=== PATIENT | male | born 1940 | race Caucasian/White ===

== ENCOUNTER → 2018-07-19 | Outpatient (CLI) | payer OTHER ==
[~2018-07-19] MED LIST: AMLO10TA7 PO; CARV12.511 PO; HYDR12.530 PO; LOSA100T58 PO; PRAV10TA39 PO
== END | disposition home or self-care (01) ==
LOC: RAH 08:28
PROVIDERS: ATTEND Neuromusculoskeletal Medicine & OMM
DX: M16.0 Bilateral primary osteoarthritis of hip (principal); I70.8 Atherosclerosis of other arteries; M47.816 Spondylosis without myelopathy or radiculopathy, lumbar region; M53.3 Sacrococcygeal disorders, not elsewhere classified; T84.216A Breakdown (mechanical) of internal fixation device of vertebrae, initial encounter; R29.6 Repeated falls
CPT/HCPCS: 72100; 73521

== ENCOUNTER → 2018-09-26 | Outpatient (CLI) | payer OTHER | END | disposition home or self-care (01) | LOC: SHCH 11:28 | PROVIDERS: ATTEND Internal Medicine Cardiovascular Disease | DX: I70.291 Other atherosclerosis of native arteries of extremities, right leg (principal) | CPT/HCPCS: 93925 ==

== ENCOUNTER → 2018-10-14 | Outpatient (CLI) | payer OTHER | END | disposition home or self-care (01) | LOC: SHCH 14:48 | PROVIDERS: ATTEND Internal Medicine Cardiovascular Disease | DX: I08.3 Combined rheumatic disorders of mitral, aortic and tricuspid valves (principal); I11.9 Hypertensive heart disease without heart failure | CPT/HCPCS: 93306 ==

== ENCOUNTER → 2018-10-17 | Outpatient (CLI) | payer OTHER ==
[~2018-10-17] VITALS: Ht 182.9 cm; Wt 112.0 kg
[~2018-10-17] MED LIST changes: +REGADENOSON 0.4 MG/5 ML PF SYG IVP SCH
== END | disposition home or self-care (01) ==
LOC: SHCH 07:48
PROVIDERS: ATTEND Internal Medicine Cardiovascular Disease
DX: I10 Essential (primary) hypertension (principal); I25.10 Atherosclerotic heart disease of native coronary artery without angina pectoris
CPT/HCPCS: 78452; 93017; 96374; A9500 ×2; J2785

== ENCOUNTER 2018-11-23 12:54 | Inpatient (IN) | payer OTHER ==
[~2018-11-23] VITALS: Ht 177.8 cm; Wt 111.7 kg
[~2018-11-23 12:54] MED LIST changes: -REGADENOSON 0.4 MG/5 ML PF SYG IVP SCH
[2018-11-23 13:42] LABS: APPEARANCE,URINE Clear (CLEAR); BILIRUBIN,URINE Negative (NEGATIVE); COLOR,URINE Yellow (YELLOW); GLUCOSE, URINE (UA) Negative (NEGATIVE); KETONES,URINE Trace mg/dL (NEGATIVE); LEUKOCYTE ESTERASE ,URINE Negative (NEGATIVE); NITRATE,URINE Negative (NEGATIVE); OCCULT BLOOD,URINE Trace (NEGATIVE); PH,URINE 5.5 (5.0-8.0); PROTEIN,URINE Trace mg/dL (NEGATIVE)
[2018-11-23 14:10] LABS: BACTERIA,URINE Rare /HPF (None Seen); SQUAMOUS EPITHELIAL CELL,UR Rare /HPF (0-2); WBC,URINE None Seen /HPF (0-1)
[2018-11-23] MEDS ORDERED: SODIUM CHLORIDE 0.9% 1000ML 1,000 ML IV ONE (14:12)
[2018-11-23 14:17] LABS: BASOPHILS % (AUTO) 0.4 % (0.0-5.0); HEMATOCRIT 44.9 % (42-54); LYMPHOCYTES % (AUTO) 6.3 % (21.0-51.0); MEAN CORPUSCULAR HEMOGLOBIN 32.6 pg (27.0-33.0); MEAN CORPUSCULAR VOLUME 95.9 fL (79-99); MONOCYTES % (AUTO) 6.6 % (3.0-13.0); NEUTROPHILS % (AUTO) 86.7 % (40.0-77.0); PLATELET COUNT (AUTO) 315 K/uL (130-400); RED BLOOD CELL COUNT(AUTO) 4.68 MIL/uL (4.50-6.20); RED CELL DISTRIBUTION WIDTH 13.7 % (11.0-15.5); WHITE BLOOD COUNT (AUTO) 15.9 K/uL (4.8-10.8)
[2018-11-23 14:27] LABS: INR 1.07 (0.85-1.15); PARTIAL THROMBOPLASTIN TIME 22.9 SEC (26.3-35.5); PROTHROMBIN TIME 11.2 SEC (9.6-11.6)
[2018-11-23 14:30] LABS: CREATININE 1.4 mg/dL (0.5-1.5); POTASSIUM 3.5 mmol/L (3.5-5.1)
[2018-11-23 14:42] LABS: ALBUMIN 3.2 g/dL (3.5-5.0); BILIRUBIN,TOTAL 1.3 mg/dL (0.2-1.0); TOTAL PROTEIN, SERUM 7.8 g/dL (6.0-8.3); TROPONIN I 0.36 ng/mL (0.00-0.06)
[2018-11-23] MEDS ORDERED: ZOSYN 3.375GM+NS 50ML 50 ML IV ONE (15:47)
[2018-11-23] MEDS ORDERED: ASPIRIN 325 MG TABLET ONE (15:47)
[2018-11-23] MEDS ORDERED: ACETAMINOPHEN-CODEINE 300/30MG TAB PO PRN (16:00)
[2018-11-23] MEDS ORDERED: DiphenhydrAMINE HCL 50 MG/ML VIAL IV PRN (16:00)
[2018-11-23] MEDS ORDERED: LIDOCAINE HCL-MPF 1% 2ML VIAL IV PRN (16:00)
[2018-11-23] MEDS ORDERED: MAG HYDROX/AL HYDROX/SIMETH ES 30 ML SUSP UDCUP PO PRN (16:00)
[2018-11-23] MEDS ORDERED: HYDROMORPHONE HCL 0.5 MG/0.5 ML ML IV PRN (16:00)
[2018-11-23] MEDS ORDERED: GUAIFENESIN-DM 200/20 MG 10 ML PO PRN (16:00)
[2018-11-23] MEDS ORDERED: DIPHENHYDRAMINE HCL 25 MG CAPSULE PO PRN (16:00)
[2018-11-23] MEDS ORDERED: NITROGLYCERIN 0.4 MG SL TAB SL PRN (16:00)
[2018-11-23] MEDS ORDERED: VANCOMYCIN 1GM+NS 250ML 250 ML IV SCH (16:00)
[2018-11-23] MEDS ORDERED: MAGNESIUM 2GM PREMIX 50ML 50 ML IV PRN (16:00)
[2018-11-23] MEDS ORDERED: ONDANSETRON HCL 4 MG/2 ML VIAL IV PRN (16:00)
[2018-11-23] MEDS ORDERED: LACTULOSE 20 GM/30 ML UDCUP PO PRN (16:00)
[2018-11-23] MEDS ORDERED: ZOLPIDEM TARTRATE 5 MG TAB PO PRN (16:00)
[2018-11-23] MEDS ORDERED: ACETAMINOPHEN 325 MG TAB PO PRN (16:00)
[2018-11-23] MEDS ORDERED: HYDRALAZINE HCL 20 MG/ML VIAL IV PRN (16:00)
[2018-11-23] MEDS ORDERED: VANCOMYCIN 1GM+NS 250ML 250 ML IV ONE (16:41)
[2018-11-23 16:52] LABS: MONOTEST NEGATIVE (NEGATIVE)
[2018-11-23 16:55] LABS: B-TYPE NATRIURETIC PEPTIDE 892 pg/mL (0-100)
[2018-11-23 17:00] LABS: RAPID PLASMA REAGIN NONREACTIVE (NONREACTIVE)
[2018-11-23] MEDS ORDERED: VANCOMYCIN PROTOCOL PER PHARMACY IV SCH (17:00)
[2018-11-23] MEDS ORDERED: COMPOUND IV REFRIGERATED 1 EACH IVSOLN MISC PRN (17:15)
[2018-11-23 17:34] LABS: ERYTHROCYTE SEDIMENTATION RATE 62 MM/HR (0-20)
--- NOTE | 2018-11-23 18:00 | NUR ---
ADMISSION PT RECEIVED FROM ER VIA STRETCHER. TRANSFERRED FROM STRETCHER TO HOSPITAL BED BY STAFF. TOLERATED WELL. PT DISORIENTED. PT ABLE TO RECALL 1st NAME, JIM ONLY. PT PLACED ON O2 NC @ 2L. NO CHEST TELE: A FIB 90-100s. VANCOMYCIN INFUSING. 0.9% NACL @ 100 ML/HR. 16 FR RAMÍREZ CATHETER PATENT & DRAINING. HX OF CHRONIC BACK PAIN & RECENT PROCEDURE TO BACK PER ER REPORT. DENIES PAIN @ THIS TIME. NPO STATUS REINFORCED. BEDREST. BED FALL ALARM. UNABLE TO OBTAIN HX FROM PT. PER ER REPORT, PLAN FOR PT TO HAVE LHC ON 11/26/[address] OCONNOR. PENDING TO RECONCILE HOME MEDICATIONS. INSTRUCTED TO CALL FOR ASSISTANCE. CALL ISAIAH W/IN REACH.
[2018-11-23 18:11] VITALS: BP 162/103
[2018-11-23] MEDS: SODIUM CHLORIDE 0.9% 1000ML 1,000 ML IV SCH (18:14)
[2018-11-23 18:18] VITALS: BP 141/68
[2018-11-23] MEDS ORDERED: CEPH500C2 PO (18:54)
[2018-11-23] MEDS ORDERED: ACET1TAB25 PO (18:54)
[2018-11-23 19:44] LABS: CRP QUANTITATIVE 115.6 mg/L (0.00-9.0); TROPONIN I 0.45 ng/mL (0.00-0.06)
[2018-11-23 19:52] VITALS: BP 136/96
[2018-11-23] MEDS ORDERED: PRAV40TA3 PO (20:35)
[2018-11-23] MEDS ORDERED: ASPI-555 PO (20:35)
[2018-11-23] MEDS ORDERED: TAMS-1 PO (20:35)
[2018-11-23] MEDS: ZOSYN 3.375GM+NS 50ML 50 ML IV SCH (21:13)
[2018-11-23] MEDS: FAMOTIDINE 20MG TAB 20 MG TAB PO SCH (21:13)
[2018-11-23] MEDS: MORPHINE SULFATE 2 MG/ML 1ML SYG IV PRN (21:14)
[2018-11-24] VITALS (26 sets, daily range): BP systolic 105–157; BP diastolic 73–109
[2018-11-24 01:06] LABS: TROPONIN I 0.38 ng/mL (0.00-0.06)
[2018-11-24] MEDS: MORPHINE SULFATE 2 MG/ML 1ML SYG IV PRN ×2 (01:41→20:09)
[2018-11-24 04:50] LABS: HEMATOCRIT 42.6 % (42-54); MEAN CORPUSCULAR HEMOGLOBIN 32.4 pg (27.0-33.0); MEAN CORPUSCULAR HGB CONC 33.3 g/dL (32.0-36.0); MEAN CORPUSCULAR VOLUME 97.4 fL (79-99); NUCLEATED RED BLOOD CELLS 0.1 % (0.0-0.19); PLATELET COUNT (AUTO) 296 K/uL (130-400); RED BLOOD CELL COUNT(AUTO) 4.38 MIL/uL (4.50-6.20); RED CELL DISTRIBUTION WIDTH 13.6 % (11.0-15.5); WHITE BLOOD COUNT (AUTO) 15.9 K/uL (4.8-10.8)
[2018-11-24 04:58] LABS: CREATININE 1.1 mg/dL (0.5-1.5); MAGNESIUM 1.8 mg/dL (1.80-2.40); POTASSIUM 3.1 mmol/L (3.5-5.1)
[2018-11-24 05:06] LABS: B-TYPE NATRIURETIC PEPTIDE 1510 pg/mL (0-100)
[2018-11-24 05:11] LABS: BAND NEUTROPHILS % (MANUAL) 1 % (0-2); BASOPHILS % (MANUAL) 2 % (0-2); LYMPHOCYTES % (MANUAL) 12 % (22-44); MAN.DIFF COMMENT-IMPRESSION MANUAL DIFFERENTIAL; MONOCYTES % (MANUAL) 7 % (2-9); SEGMENTED NEUTROPHILS % 78 % (40-70)
[2018-11-24] MEDS: POTASSIUM CHLORIDE 20MEQ/100ML 100 ML IV PRN ×2 (05:49→17:39)
[2018-11-24] MEDS: ZOSYN 3.375GM+NS 50ML 50 ML IV SCH ×3 (05:49→21:35)
[2018-11-24] MEDS: SODIUM CHLORIDE 0.9% 1000ML 1,000 ML IV SCH ×3 (05:50→22:00)
--- NOTE | 2018-11-24 08:30 | NUR ---
AM ASSESSMENT PT LAYING IN BED, HOB ELEVATED 30 DEGREES, RESTING. A/O X 2, CONFUSED PHRASES. NO SOB. NO DISTRESS NOTED. DENIES CHEST PAIN OR DISCOMFORT. DENIES PALPITATIONS. TELE: AFIB 110s. 16 FR RAMÍREZ CATHETER PATENT & DRAINING. DENIES N/V AND/OR DIARRHEA. NPO STATUS REINFORCED. C/O OF BACK DISCOMFORT. PT REPOSITIONED. BED REST. BED FALL ALARM. INSTRUCTED TO CALL FOR ASSISTANCE. CALL ISAIAH W/IN REACH.
[2018-11-24] MEDS: FAMOTIDINE 20MG TAB 20 MG TAB PO SCH ×2 (08:32→21:34)
[2018-11-24] MEDS: VANCOMYCIN 1.5 GM in SODIUM CHLORIDE 0.9% 250 ML IV SCH (08:33)
[2018-11-24 08:45] LABS: TROPONIN I 0.25 ng/mL (0.00-0.06)
--- NOTE | 2018-11-24 09:00 | NUR ---
VERONICA TELLEZ, PT'S GIRLFRIEND, IN TO SEE PT. REGARDING PT'S HX OF CHRONIC BACK PAIN. 2 WEEKS AGO PT HAD TRIAL ELECTRODES TO HELP RELIEVE BACK PAIN BY DR DESHPANDE. ELECTRODES ONLY WORKED X 4 DAYS, LEAD MISPLACED. DEVICE REMOVED 11/20/[address] DESHPANDE,
--- NOTE | 2018-11-24 12:00 | NUR ---
cm note met with patient james states resides at home alone, has girlfriend catalino that assists as needed for tansport, etc. pt states he has a cane, walker, and a w/c, but uses them as needed. discussed md orders for dc planning. per pt prefers to return back to same setting.discussed with him the possiblity of needing snf for rehab, states will discuss that if needed when ready. Addendum: 11/24/18 at 1544 by MOLLY MIRELES CM Amended: Links added.
--- NOTE | 2018-11-24 12:48 | NUR ---
MD VISIT DR ESCOBAR IN TO SEE PT. UPDATED ON PT'S STATUS. CURRENTLY AFIB 120s. ORDER RECEIVED FOR 1 X DOSE OF METOPROLOL 5 MG IVP TO BE GIVEN. PLAN OF CARE DISCUSSED FURTHER W/PT'S VISITORGEOFF.
[2018-11-24] MEDS ORDERED: METOPROLOL TARTRATE 1 MG/ML 5ML VIAL IV ONE (12:55)
--- NOTE | 2018-11-24 13:03 | NUR ---
MD VISIT Frank NELSON IN TO SEE PT. UPDATED ON PT'S STATUS & PLAN OF CARE.
[2018-11-24] MEDS: METOPROLOL TARTRATE 1 MG/ML 5ML VIAL IV SCH ×2 (13:04→14:05)
--- NOTE | 2018-11-24 13:42 | NUR ---
VTACH @ 1342 NOTIFIED BY BIB FUNEZ, CURRENT HEART RHYTHM VTACH; @ THE SAME TIME VISITOR COMING OUT OF PT'S ROOM ASKING FOR HELP. FAMILY MEMBER STATING, "HE'S HAVING A SEIZURE." PT RESPONSIVE. ON O2 NC @ 2L. V/S TAKEN, REFER TO V/S SPREADSHEET. CRASH CART BROUGHT IN TO ROOM. DEFIBRILLATOR PADS PLACED ON PT. DR ROMERO NOTIFIED. @ 1345 DR ROMERO IN RM. PT SHOCKED @ 120 JOULES. HEART RHYTHM CONVERTED. @ 1350 METOPROLOL 5 MG IVP GIVEN. Frank NELSON NOTIFIED & PRESENT IN ROOM @ TIME OF SHOCK. LABS ORDERED. ELECTROLYTES TO BE REPLACED ACCORDINGLY. WILL CONTINUE TO MONITOR PT.
[2018-11-24] MEDS ORDERED: LORAZEPAM 2 MG/ML 1 ML VIAL ONE ×2 (13:50→14:23)
[2018-11-24] MEDS ORDERED: METOPROLOL TARTRATE 1 MG/ML 5ML VIAL IV SCH (14:00)
[2018-11-24] MEDS ORDERED: LIDOCAINE HCL-MPF 1% 2ML VIAL IJ PRN (14:00)
[2018-11-24] MEDS: MAGNESIUM 2GM PREMIX 50ML 50 ML IV PRN (14:04)
[2018-11-24 14:19] LABS: CREATININE 1.2 mg/dL (0.5-1.5); MAGNESIUM 1.8 mg/dL (1.80-2.40); PHOSPHORUS 2.8 mg/dL (2.5-4.9); POTASSIUM 3.6 mmol/L (3.5-5.1)
--- NOTE | 2018-11-24 14:22 | NUR ---
V TACH PT BACK IN TO [facility], NOTIFIED BY SPINNING MULE OPERATOR, JASON. DEFIBRILLATOR PADS ALREADY ON PT. Frank NELSON IN ROOM. DR ROMERO NOTIFIED OF PT'S CURRENT STATUS VIA TELEPHONE. @ 1425 PT SHOCKED @ 120 JOULES. @ 1425 MIODARONE 300 MG IVP GIVEN. AMIODARONE GTT PER PROTOCOL TO BE SARTED. DR ROMERO & Frank NELSON DISCUSSING PT'S CURRENT STATUS VIA TELEPHONE. ORDERS RECEIVED & ENTERED. PT TO BE TRANSFERRED TO ICU. Frank NELSON TO UPDATE PT'S GRAND DAUGHTER, PAUL CHARLES ON PT'S STATUS & CURRENT PLAN OF CARE.
[2018-11-24] MEDS ORDERED: AMIODARONE HCL 900 MG in DEXTROSE 5%-WATER 500 ML IV SCH (14:30)
[2018-11-24] MEDS ORDERED: AMIODARONE HCL 50 MG/ML 3 ML VIAL IV ONE (14:30)
--- NOTE | 2018-11-24 14:45 | NUR ---
TRANSFER PT TRANSFERRED TO ICU RM 210 VIA BED. PT ON DEFIBRILLATOR DURING TRANSPORT. REPORT GIVEN TO Suzan LANDAVERDE RN.
[2018-11-24] MEDS ORDERED: VANCOMYCIN 1.5 GM in SODIUM CHLORIDE 0.9% 250 ML IV SCH (16:00)
--- NOTE | 2018-11-24 16:30 | NUR ---
PAGED DR DESHPANDE FOR CONSULT. HIS PA TED GARCIA RETURNED PAGE. NEW ORDERS GIVEN. WILL SEE PATIENT.
[2018-11-24 16:33] LABS: TROPONIN I 0.2 ng/mL (0.00-0.06)
[2018-11-24] MEDS: METOPROLOL TARTRATE 50 MG TAB PO SCH ×2 (17:39→21:34)
[2018-11-24 17:42] LABS: ABG BASE EXCESS 5.2 mmol/L (-2.0-3.0); ABG OXYGEN SATURATION 96.4 % (95.0-99.0); ABG PCO2 45 mmHg (35-48)
[2018-11-24] MEDS ORDERED: FUROSEMIDE 10 MG/ML 4ML VIAL ONE (20:06)
[2018-11-24] MEDS ORDERED: FUROSEMIDE 10 MG/ML 4ML VIAL IV SCH (20:15)
--- NOTE | 2018-11-24 20:18 | NUR ---
AGITATION AGITATED TRYING TO GET OOB. PULLING AT ECG LEADS AND IV LINES DESPITE BEING ASKED TO NOT DO THIS. VERY SOB WITH EXERTION. CAROL RANGEL NP CALLED AND INFORMED OF THIS AND ORDERS RECEIVED AND CARRIED OUT. HUMAN RESOURCES RECRUITER CALLED AND INFORMED OF ORDER FOR 1:1.
--- NOTE | 2018-11-24 21:00 | NUR ---
STATUS CONTINUES TO BE RESTLESS AND AGITATED. PULLS AT O2 AND IV LINES. INSTRUCTED TO RELAX AND NOT GET OOB. NURSE SITTING BY ROOM TO PREVENT PT FALL OR PULLING OUT LINES.
--- NOTE | 2018-11-24 21:30 | NUR ---
SITTER 1:1 SITTER HERE TO PREVENT FALL OR PULLING OUT LINES.
[2018-11-25] VITALS (20 sets, daily range): BP systolic 98–144; BP diastolic 47–91
[2018-11-25] MEDS: ZOSYN 3.375GM+NS 50ML 50 ML IV SCH ×3 (04:53→21:08)
[2018-11-25] MEDS: SODIUM CHLORIDE 0.9% 1000ML 1,000 ML IV SCH ×2 (08:00→17:15)
[2018-11-25] MEDS: ATORVASTATIN CALCIUM 20 MG TABLET PO SCH (08:21)
[2018-11-25] MEDS: FAMOTIDINE 20MG TAB 20 MG TAB PO SCH ×2 (08:21→21:08)
[2018-11-25] MEDS: METOPROLOL TARTRATE 50 MG TAB PO SCH ×3 (08:21→21:08)
[2018-11-25] MEDS: VANCOMYCIN 1.5 GM in SODIUM CHLORIDE 0.9% 250 ML IV SCH (09:47)
--- NOTE | 2018-11-25 10:00 | NUR ---
DYSPHAGIA EVELROY COMPLETED.-S/S OF ASPIRATION. RECOMMEND REGULAR TEXTURE, THIN LIQUIDS; PILLS WHOLE WITH LIQUIDS. Addendum: 11/25/18 at 1228 by SHAYY PERES, [facility] Amended: Links added.
[2018-11-25 11:05] LABS: BASOPHILS % (AUTO) 0.9 % (0.0-5.0); EOSINOPHILS % (AUTO) 0.1 % (0.0-8.0); HEMATOCRIT 40.6 % (42-54); LYMPHOCYTES % (AUTO) 9.3 % (21.0-51.0); MEAN CORPUSCULAR HEMOGLOBIN 31.6 pg (27.0-33.0); MEAN CORPUSCULAR HGB CONC 32.4 g/dL (32.0-36.0); MEAN CORPUSCULAR VOLUME 97.5 fL (79-99); MONOCYTES % (AUTO) 8.8 % (3.0-13.0); NEUTROPHILS % (AUTO) 80.9 % (40.0-77.0); NUCLEATED RED BLOOD CELLS 0.1 % (0.0-0.19); PLATELET COUNT (AUTO) 335 K/uL (130-400); RED BLOOD CELL COUNT(AUTO) 4.16 MIL/uL (4.50-6.20); RED CELL DISTRIBUTION WIDTH 14.3 % (11.0-15.5); WHITE BLOOD COUNT (AUTO) 17.6 K/uL (4.8-10.8)
[2018-11-25 11:10] LABS: CREATININE 1.2 mg/dL (0.5-1.5); POTASSIUM 3.2 mmol/L (3.5-5.1)
[2018-11-25 11:15] LABS: ALBUMIN 2.6 g/dL (3.5-5.0); BILIRUBIN,TOTAL 1.3 mg/dL (0.2-1.0); TOTAL PROTEIN, SERUM 6.8 g/dL (6.0-8.3)
--- NOTE | 2018-11-25 11:50 | NUR ---
PT BEING ASSESSED PER DR. RAMEY AND ORDERS FOR PAIN MED NOTED.
[2018-11-25] MEDS ORDERED: ONDANSETRON HCL 4 MG/2 ML VIAL IVP PRN (12:00)
[2018-11-25] MEDS: HYDROMORPHONE 1 MG/1 ML AMP IVP PRN ×2 (13:19→23:12)
--- NOTE | 2018-11-25 13:30 | NUR ---
TO CT SCAN ORDERED AND WAS MEDICATED WITH DILAUDID 0.5MG PRIOR TO TAKING TO CT SCAN.
--- NOTE | 2018-11-25 13:50 | NUR ---
BACK FROM CT SCAN AND PT STATES HIS PAIN IS MUCH BETTER AND STATES IT'S A 3 NOW.
--- NOTE | 2018-11-25 15:23 | NUR ---
RD NOTIFICATION Primary diagnosis: Sepsis, AMS. Hx: Afib, GI Bleed, HTN, Sleep apnea, S/P CABG. BMI is 34.8; classified as obese. Current diet: Heart healthy/ Soft bland. LBM: 11/23. PO 25-50% as per pt and family. Pt stated he does not like hospital food. Pt likes ice cream and says he can eat that. Appetite is fair as per pt and family. Meds: Pepcid, Lipitor, Lopressor, Apresoline, Vancomycin. Labs: WBC 15.9, Cre kinase 236, Myoglobin 211, Troponin .20, BNP 1510, CRP 115.6, Alb 3.2. RD recommends to continue current diet. Offer snacks between meals. RD will continue to monitor and follow up as needed. Please notify RD if any other nutritional concerns arise. Thank you. Addendum: 11/25/18 at [address] Amended: Links added.
--- NOTE | 2018-11-25 17:30 | NUR ---
DR. DAWSON CALLED TO CHECK ON PATIENT AND UPDATE WAS GIVEN AND ORDER NOTED.
--- NOTE | 2018-11-25 17:41 | NUR ---
CALLED DR. CENTENO AND STATES THAT HE IS OUT OF TOWN. CONSULT CANCELLED.
--- NOTE | 2018-11-25 20:00 | NUR ---
ASSESSMENT PT RESTING IN BED, 1:1 SITTER AT BEDSIDE. PT ORIENTED TO SELF. PT AROUSES WITH VERBAL STIMULI BUT VERBAL RESPONSES ARE INAPPROPRIATE. PT DOES SIMPLE FOLLOWS COMMANDS, PERRLA. IVF FLUIDS INFUSING WITHOUT DIFFICULTY. 16FR RAMÍREZ CATH TO BEDSIDE DRAINAGE. CALLBELL REVIEWED AND WITHIN REACH. BEDSIDE MONITOR REVIEWED AND PARAMETERS ESTABLISHED. WHITE BOARD UP-DATED. ASSESSMENT COMPLETED, SEE FLOW SHEETS.
[2018-11-25] MEDS: ACETAMINOPHEN-CODEINE 300/30MG TAB PO PRN (22:11)
[2018-11-26] VITALS (25 sets, daily range): BP systolic 98–140; BP diastolic 39–84
--- NOTE | 2018-11-26 | NUR ---
ASSESSMENT PT RESTING IN BED, 1:1 SITTER AT BEDSIDE. PT ORIENTED TO SELF. PT AROUSES WITH VERBAL STIMULI BUT VERBAL RESPONSES ARE INAPPROPRIATE. PT DOES SIMPLE FOLLOWS COMMANDS, PERRLA. IVF FLUIDS INFUSING WITHOUT DIFFICULTY. 16FR RAMÍREZ CATH TO BEDSIDE DRAINAGE. CALLBELL WITHIN REACH. WHITE BOARD UP-DATED. ASSESSMENT COMPLETED, SEE FLOW SHEETS
[2018-11-26 03:46] LABS: BASOPHILS % (AUTO) 0.4 % (0.0-5.0); EOSINOPHILS % (AUTO) 1.3 % (0.0-8.0); HEMATOCRIT 38.9 % (42-54); LYMPHOCYTES % (AUTO) 9.3 % (21.0-51.0); MEAN CORPUSCULAR HEMOGLOBIN 32.6 pg (27.0-33.0); MEAN CORPUSCULAR HGB CONC 33.9 g/dL (32.0-36.0); MEAN CORPUSCULAR VOLUME 96.4 fL (79-99); MONOCYTES % (AUTO) 8.9 % (3.0-13.0); NEUTROPHILS % (AUTO) 80.1 % (40.0-77.0); PLATELET COUNT (AUTO) 311 K/uL (130-400); RED BLOOD CELL COUNT(AUTO) 4.03 MIL/uL (4.50-6.20); RED CELL DISTRIBUTION WIDTH 13.7 % (11.0-15.5); WHITE BLOOD COUNT (AUTO) 14.1 K/uL (4.8-10.8)
[2018-11-26 03:55] LABS: INR 1.11 (0.85-1.15); PARTIAL THROMBOPLASTIN TIME 24.9 SEC (26.3-35.5); PROTHROMBIN TIME 11.6 SEC (9.6-11.6)
[2018-11-26 03:56] LABS: ALBUMIN 2.3 g/dL (3.5-5.0); BILIRUBIN,TOTAL 1.1 mg/dL (0.2-1.0); CREATININE 0.9 mg/dL (0.5-1.5); MAGNESIUM 1.8 mg/dL (1.80-2.40); PHOSPHORUS 2.1 mg/dL (2.5-4.9); POTASSIUM 3.1 mmol/L (3.5-5.1); TOTAL PROTEIN, SERUM 6.2 g/dL (6.0-8.3)
--- NOTE | 2018-11-26 04:00 | NUR ---
ASSESSMENT PT RESTING IN BED, 1:1 SITTER AT BEDSIDE. PT ORIENTED TO SELF. PT AROUSES WITH VERBAL STIMULI BUT VERBAL RESPONSES ARE INAPPROPRIATE. PT DOES SIMPLE FOLLOWS COMMANDS, PERRLA. IVF FLUIDS INFUSING WITHOUT DIFFICULTY. 16FR RAMÍREZ CATH TO BEDSIDE DRAINAGE. CALLBELL WITHIN REACH. ASSESSMENT COMPLETED, SEE FLOW SHEET.
[2018-11-26] MEDS: ZOSYN 3.375GM+NS 50ML 50 ML IV SCH ×3 (04:07→21:09)
[2018-11-26] MEDS: POTASSIUM CHLORIDE 20MEQ/100ML 100 ML IV PRN (05:38)
[2018-11-26] MEDS: HYDROMORPHONE 1 MG/1 ML AMP IVP PRN (05:52)
[2018-11-26] MEDS ORDERED: DIGOXIN 250 MCG/ML 2ML AMP IV SCH ×2 (07:45→12:00)
[2018-11-26] MEDS: FAMOTIDINE 20MG TAB 20 MG TAB PO SCH ×2 (08:29→21:08)
[2018-11-26] MEDS: AMIODARONE HCL 200 MG TABLET PO SCH (08:29)
[2018-11-26] MEDS: MAGNESIUM 2GM PREMIX 50ML 50 ML IV PRN (08:30)
[2018-11-26] MEDS: METOPROLOL TARTRATE 50 MG TAB PO SCH ×2 (08:30→22:18)
[2018-11-26] MEDS: ATORVASTATIN CALCIUM 20 MG TABLET PO SCH (08:33)
[2018-11-26] MEDS: VANCOMYCIN 1.5 GM in SODIUM CHLORIDE 0.9% 250 ML IV SCH (08:35)
[2018-11-26] MEDS: POTASSIUM PHOS 15 mMOL+NS250ML 250 ML IV PRN (10:49)
[2018-11-26] MEDS: LIDOCAINE 5% TOPICAL PATCH TP SCH (12:00)
[2018-11-27] VITALS (18 sets, daily range): BP systolic 94–136; BP diastolic 45–85
[2018-11-27 03:49] LABS: BASOPHILS % (AUTO) 0.5 % (0.0-5.0); EOSINOPHILS % (AUTO) 3.1 % (0.0-8.0); HEMATOCRIT 38.9 % (42-54); LYMPHOCYTES % (AUTO) 9.7 % (21.0-51.0); MEAN CORPUSCULAR HGB CONC 33.7 g/dL (32.0-36.0); MEAN CORPUSCULAR VOLUME 94.9 fL (79-99); MONOCYTES % (AUTO) 9.5 % (3.0-13.0); NEUTROPHILS % (AUTO) 77.2 % (40.0-77.0); PLATELET COUNT (AUTO) 321 K/uL (130-400); RED CELL DISTRIBUTION WIDTH 14.1 % (11.0-15.5); WHITE BLOOD COUNT (AUTO) 12.4 K/uL (4.8-10.8)
[2018-11-27 04:04] LABS: CREATININE 0.9 mg/dL (0.5-1.5); MAGNESIUM 1.8 mg/dL (1.80-2.40); PHOSPHORUS 1.8 mg/dL (2.5-4.9); POTASSIUM 3.2 mmol/L (3.5-5.1)
[2018-11-27] MEDS: POTASSIUM CHLORIDE 20MEQ/100ML 100 ML IV PRN ×2 (04:32→08:45)
[2018-11-27] MEDS: ZOSYN 3.375GM+NS 50ML 50 ML IV SCH ×3 (04:33→20:13)
[2018-11-27] MEDS: HYDROMORPHONE 1 MG/1 ML AMP IVP PRN ×2 (05:42→14:01)
--- NOTE | 2018-11-27 05:50 | NUR ---
BACK PAIN PATIENT SITTING ON SIDE OF BED. LEANING FORWARD WITH FACIAL GRIMACING. STATED THAT HAS CURRENT BACK PAIN RATED 10/10. HYDROMORPHONE ADMINISTERED. POSITIONED TO COMFORT
[2018-11-27] MEDS: MAGNESIUM 2GM PREMIX 50ML 50 ML IV PRN (06:24)
[2018-11-27] MEDS: DIGOXIN 125 MCG TABLET PO SCH (07:32)
--- NOTE | 2018-11-27 07:33 | NUR ---
DR OCONNOR AT BEDSIDE, NEW ORDERS GIVEN TO HOLD DIGOXIN PO THIS AM AND TO ADMINISTER A ONE ORDER OF DIGOXIN 250 MCG IVP
[2018-11-27] MEDS: METOPROLOL TARTRATE 50 MG TAB PO SCH ×2 (07:41→20:13)
[2018-11-27] MEDS: ACETAMINOPHEN-CODEINE 300/30MG TAB PO PRN ×2 (07:46→20:16)
[2018-11-27] MEDS ORDERED: DIGOXIN 250 MCG/ML 2ML AMP IV SCH (07:49)
[2018-11-27] MEDS: LIDOCAINE 5% TOPICAL PATCH TP SCH (07:57)
[2018-11-27] MEDS: POTASSIUM PHOS 15 mMOL+NS250ML 250 ML IV PRN (08:01)
[2018-11-27] MEDS: AMIODARONE HCL 200 MG TABLET PO SCH (08:10)
[2018-11-27] MEDS: FAMOTIDINE 20MG TAB 20 MG TAB PO SCH ×2 (08:10→20:13)
[2018-11-27] MEDS: ATORVASTATIN CALCIUM 20 MG TABLET PO SCH (08:10)
--- NOTE | 2018-11-27 08:52 | NUR ---
SPOKE TO AMPAROPHARMACIST, NOTIFIED ABOUT VANCO TROUGH 5.5, INSTRUCTIONS GIVEN PER PHARMACIST TO ADMINISTER VANCO DOSE OF 1.5 GM IV AT 0900
[2018-11-27] MEDS: VANCOMYCIN 1.5 GM in SODIUM CHLORIDE 0.9% 250 ML IV SCH (08:56)
[2018-11-27] MEDS ORDERED: GADODIAMIDE 10 MMOL/20 ML VIAL IV ONE (10:07)
[2018-11-27] MEDS ORDERED: POTASSIUM PHOS 15 mMOL+NS250ML 250 ML IV PRN (15:30)
[2018-11-27] MEDS ORDERED: MAGNESIUM 2GM PREMIX 50ML 50 ML IV PRN (15:30)
--- NOTE | 2018-11-27 15:30 | NUR ---
REPORT GIVEN TO FÁTIMA GAMINO, TRANSFERRED TO [facility], ROOM 203
[2018-11-27] MEDS: VANCOMYCIN 1GM+NS 250ML 250 ML IV SCH (17:16)
--- NOTE | 2018-11-28 01:00 | NUR ---
PT REMOVED HIS PICC LINE. NO BLEEDING NOTED. PT STABLE. NO DISTRESS NOTED. MINIMAL BRUISING AROUND SITE. I ATTEMPTED AN IV INSERTION X2, ART RN ATTEMPTED AND PT REFUSED. WILL RE ATTEMPT IN THE MORNING.
[2018-11-28] MEDS: ACETAMINOPHEN 325 MG TAB PO PRN ×2 (03:21→09:14)
[2018-11-28 04:06] VITALS: BP 149/70
[2018-11-28] MEDS: ZOSYN 3.375GM+NS 50ML 50 ML IV SCH ×3 (05:00→21:18)
[2018-11-28 05:06] LABS: HEMATOCRIT 39.1 % (42-54); MEAN CORPUSCULAR HEMOGLOBIN 32.4 pg (27.0-33.0); MEAN CORPUSCULAR HGB CONC 34.2 g/dL (32.0-36.0); MEAN CORPUSCULAR VOLUME 94.8 fL (79-99); PLATELET COUNT (AUTO) 361 K/uL (130-400); RED BLOOD CELL COUNT(AUTO) 4.13 MIL/uL (4.50-6.20); RED CELL DISTRIBUTION WIDTH 13.5 % (11.0-15.5); WHITE BLOOD COUNT (AUTO) 11.8 K/uL (4.8-10.8)
[2018-11-28 05:17] LABS: INR 1.06 (0.85-1.15); PARTIAL THROMBOPLASTIN TIME 23.9 SEC (26.3-35.5); PROTHROMBIN TIME 11.1 SEC (9.6-11.6)
[2018-11-28 05:19] LABS: CREATININE 0.9 mg/dL (0.5-1.5); POTASSIUM 3.8 mmol/L (3.5-5.1)
[2018-11-28 05:34] LABS: MAGNESIUM 1.8 mg/dL (1.80-2.40); PHOSPHORUS 1.5 mg/dL (2.5-4.9); THYROID STIMULATING HORMONE 3.61 uIU/mL (0.36-3.74)
[2018-11-28] MEDS: VANCOMYCIN 1GM+NS 250ML 250 ML IV SCH ×2 (06:00→14:58)
[2018-11-28 07:31] VITALS: BP_SYST 116; BP_SYST 131; BP_DIAS 48; BP_DIAS 69
[2018-11-28] MEDS: ATORVASTATIN CALCIUM 20 MG TABLET PO SCH (09:14)
[2018-11-28] MEDS: AMIODARONE HCL 200 MG TABLET PO SCH (09:14)
[2018-11-28] MEDS: FAMOTIDINE 20MG TAB 20 MG TAB PO SCH ×2 (09:14→21:18)
[2018-11-28] MEDS: DIGOXIN 125 MCG TABLET PO SCH (09:15)
[2018-11-28] MEDS: METOPROLOL TARTRATE 50 MG TAB PO SCH ×2 (09:15→21:18)
[2018-11-28] MEDS: LIDOCAINE 5% TOPICAL PATCH TP SCH (09:16)
[2018-11-28] MEDS ORDERED: MORPHINE SULFATE 2 MG/ML 1ML SYG IM PRN ×2 (10:15)
[2018-11-28] MEDS: ACETAMINOPHEN-CODEINE 300/30MG TAB PO PRN (10:45)
[2018-11-28 11:39] VITALS: BP 141/78
[2018-11-28 15:26] VITALS: BP 127/78
[2018-11-28] MEDS: HYDROMORPHONE 1 MG/1 ML AMP IVP PRN (17:30)
[2018-11-28 20:48] VITALS: BP 150/86
[2018-11-28 23:38] VITALS: BP 149/65
[2018-11-29] MEDS: HYDROMORPHONE 1 MG/1 ML AMP IVP PRN (02:19)
[2018-11-29 04:00] VITALS: BP 155/81
[2018-11-29] MEDS: ZOSYN 3.375GM+NS 50ML 50 ML IV SCH ×3 (05:18→22:13)
[2018-11-29 05:39] LABS: HEMATOCRIT 40.2 % (42-54); MEAN CORPUSCULAR HEMOGLOBIN 32.4 pg (27.0-33.0); MEAN CORPUSCULAR HGB CONC 33.8 g/dL (32.0-36.0); MEAN CORPUSCULAR VOLUME 95.7 fL (79-99); PLATELET COUNT (AUTO) 393 K/uL (130-400); RED CELL DISTRIBUTION WIDTH 13.6 % (11.0-15.5); WHITE BLOOD COUNT (AUTO) 13.4 K/uL (4.8-10.8)
[2018-11-29 05:56] LABS: CREATININE 0.9 mg/dL (0.5-1.5); POTASSIUM 3.7 mmol/L (3.5-5.1)
[2018-11-29 07:00] VITALS: BP 139/75
[2018-11-29] MEDS ORDERED: VANCOMYCIN 1GM+NS 250ML 250 ML IV SCH (09:00)
[2018-11-29] MEDS ORDERED: VANCOMYCIN 1GM+NS 250ML 250 ML IV ONE (09:01)
[2018-11-29] MEDS: METOPROLOL TARTRATE 50 MG TAB PO SCH ×2 (09:06→22:14)
[2018-11-29] MEDS: DIGOXIN 125 MCG TABLET PO SCH (09:06)
[2018-11-29] MEDS: FAMOTIDINE 20MG TAB 20 MG TAB PO SCH ×2 (09:06→22:13)
[2018-11-29] MEDS: ATORVASTATIN CALCIUM 20 MG TABLET PO SCH (09:06)
[2018-11-29] MEDS: AMIODARONE HCL 200 MG TABLET PO SCH (09:06)
[2018-11-29] MEDS: ACETAMINOPHEN-CODEINE 300/30MG TAB PO PRN ×3 (09:07→19:37)
[2018-11-29] MEDS: LIDOCAINE 5% TOPICAL PATCH TP SCH (09:08)
[2018-11-29] MEDS: POTASSIUM CHLORIDE 20MEQ/100ML 100 ML IV PRN (11:31)
--- NOTE | 2018-11-29 13:16 | NUR ---
DC PLAN PER NURSE DR. MARIE SAID PLAN IS NOT TO TRANSFER UNTIL NEXT WEEK. EXPLAINED THAT PATIENT IS ONE TO ONE AND ALSO NO CLEAR PLAN ON ABX. IF MD NOT PLANNING DC UNTIL NEXT WEEK WILL SEND REFERRAL ON SUNDAY. HOPE BY THEN PATIENT WILL BE OFF THE ONE TO ONE. Addendum: 11/29/18 at 1320 by SUNI PACKER RN CM Amended: Links added.
[2018-11-29 14:57] VITALS: BP 142/81
[2018-11-29 19:21] VITALS: BP 159/93
[2018-11-29] MEDS ORDERED: VANCOMYCIN 1.75 GM in SODIUM CHLORIDE 0.9% 250 ML IV ONE (19:30)
--- NOTE | 2018-11-29 19:45 | NUR ---
Initial Assessment patient is resting in bed, is alert and oriented to person, place, time, and situation. No confusion present at this time. No signs of distress. Patient is on the phone speaking with family. Complaints of no pain at this time. Patient instructed to call if anything needed. Sitter is sitting at bedside. All needs addressed at this time.
[2018-11-29 23:27] VITALS: BP 158/82
--- NOTE | 2018-11-30 | NUR ---
ASSESSMENT PT IS RESTING IN BED AND HAS 1:1 SITTER AT BEDSIDE. NO SIGNS OF DISTRESS. NO COMPLAINTS OF PAIN AT THIS TIME. PT ORIENTED TO SELF. PT AROUSES WITH VERBAL STIMULI. PT FOLLOWS SIMPLE COMMANDS, IVF FLUIDS INFUSING WITHOUT DIFFICULTY. 16FR RAMÍREZ CATH TO BEDSIDE DRAINAGE. CALL LIGHT WITHIN REACH. ASSESSMENT COMPLETED. PATIENT ASSISTED TO THE BATHROOM FOR A BM BUT DID NOT HAVE ONE. WARM PRUNE JUICE WAS GIVEN TO THE PATIENT.
[2018-11-30] MEDS: VANCOMYCIN 750MG + NS 250 ML IV SCH ×8 (01:25→23:53)
[2018-11-30 03:24] LABS: BASOPHILS % (AUTO) 0.7 % (0.0-5.0); EOSINOPHILS % (AUTO) 2.6 % (0.0-8.0); HEMATOCRIT 40.2 % (42-54); LYMPHOCYTES % (AUTO) 11.9 % (21.0-51.0); MEAN CORPUSCULAR HEMOGLOBIN 32.4 pg (27.0-33.0); MEAN CORPUSCULAR HGB CONC 33.5 g/dL (32.0-36.0); MEAN CORPUSCULAR VOLUME 96.6 fL (79-99); NEUTROPHILS % (AUTO) 78.8 % (40.0-77.0); PLATELET COUNT (AUTO) 380 K/uL (130-400); RED BLOOD CELL COUNT(AUTO) 4.16 MIL/uL (4.50-6.20); WHITE BLOOD COUNT (AUTO) 11.6 K/uL (4.8-10.8)
[2018-11-30 03:31] LABS: ALBUMIN 2.3 g/dL (3.5-5.0); BILIRUBIN,TOTAL 0.8 mg/dL (0.2-1.0); POTASSIUM 3.6 mmol/L (3.5-5.1); TOTAL PROTEIN, SERUM 6.2 g/dL (6.0-8.3)
--- NOTE | 2018-11-30 04:00 | NUR ---
ASSESSMENT PT IS RESTING IN BED AND HAS 1:1 SITTER AT BEDSIDE. NO SIGNS OF DISTRESS. NO COMPLAINTS OF PAIN AT THIS TIME. PT ORIENTED TO SELF. PT AROUSES WITH VERBAL STIMULI. PT FOLLOWS SIMPLE COMMANDS, IVF FLUIDS INFUSING WITHOUT DIFFICULTY. 16FR RAMÍREZ CATH TO BEDSIDE DRAINAGE. CALL LIGHT WITHIN REACH. ASSESSMENT COMPLETED. ALL NEEDS ADDRESSED.
[2018-11-30 04:05] VITALS: BP 145/68
[2018-11-30] MEDS: ZOSYN 3.375GM+NS 50ML 50 ML IV SCH ×3 (05:39→20:45)
--- NOTE | 2018-11-30 05:42 | NUR ---
CONFUSION PATIENT WOKE UP STARTED AND CONFUSED. DISORIENTED TO TIME AND PLACE AND CUSSING TO GET HIM OUT OF HERE. PATIENT WAS REORIENTED AND REASSURED WE ARE HERE TO HELP HIM. SITTER CONTINUES AT BEDSIDE. ONCE REORIENTED PATIENT IS NOW CALM WITH NO COMPLAINTS OF PAIN AND NO SIGNS OF DISTRESS.
[2018-11-30 07:46] VITALS: BP 144/89
[2018-11-30] MEDS: DIGOXIN 125 MCG TABLET PO SCH (08:23)
[2018-11-30] MEDS: ATORVASTATIN CALCIUM 20 MG TABLET PO SCH (08:23)
[2018-11-30] MEDS: FAMOTIDINE 20MG TAB 20 MG TAB PO SCH ×2 (08:23→20:46)
[2018-11-30] MEDS: AMIODARONE HCL 200 MG TABLET PO SCH (08:23)
[2018-11-30] MEDS: METOPROLOL TARTRATE 50 MG TAB PO SCH ×2 (08:24→20:46)
[2018-11-30] MEDS: LIDOCAINE 5% TOPICAL PATCH TP SCH (08:24)
[2018-11-30 11:39] VITALS: BP 131/68
--- NOTE | 2018-11-30 14:47 | NUR ---
Nutrition Follow-up: Pt. on Heart Healthy Soft Stephens diet, snacks TID. Pt. states p.o. intake varies due to sometimes doesn't like the food. Labs reviewed(Alb 2.3). LBM: 11/30/18, per pt. camilo [employer]. Recommendations: 1) Rec. Ensure supp. QD with b'fast meal. 2) Continue to monitor pt's nutritional status. 3) Consult RD as nutrition concerns arise. Addendum: 11/30/18 at [address] Amended: Links added.
[2018-11-30] MEDS: ACETAMINOPHEN-CODEINE 300/30MG TAB PO PRN ×2 (16:00→23:53)
[2018-11-30 16:16] VITALS: BP 137/80
[2018-11-30 19:33] VITALS: BP 151/97
--- NOTE | 2018-11-30 19:38 | NUR ---
INITIAL ASSESSMENT PATIENT IS RESTING IN BED. ALERT AND ORIENTEDX3 AT THIS TIME. PATIENT COMPLAINS OF NO PAIN AT THIS TIME. NO SHORTNESS OF BREATH. NO SIGNS OF DISTRESS. PATIENTS IV IS INTACT AND WRAPPED. PATIENT RAMÍREZ IN PLACE AND AT BEDSIDE PATENT AND DRAINING. PATIENT WAS ASSISTED TO THE BATHROOM TO SHOWER ALONG WITH THE ASSISTANCE OF THE 1:1 SITTER. SITTER TO REMAIN AT BEDSIDE. ALL NEEDS MET AT THIS TIME. REINFORCED TO ASK SITTER FOR HELP. CALL LIGHT IS WITHIN REACH.
--- NOTE | 2018-11-30 22:37 | NUR ---
PATIENT MOVED PATIENT MOVED FROM ROOM 203 TO 232. PATIENT CONTINUES TO COMPLAIN OF NO PAIN. NO SIGNS OF DISTRESS. PATIENT IS RESTING IN BED. 1:1 SITTER CONTINUES AT BEDSIDE.
[2018-11-30 23:22] VITALS: BP 127/79
--- NOTE | 2018-12-01 | NUR ---
ASSESSMENT PATIENT IS SITTING IN BED. NO COMPLAINTS OF PAIN AT THIS TIME. NO SHORTNESS OF BREATH. NO SIGNS OF DISTRESS. RAMÍREZ CATH IN PLACE AND AT BEDSIDE PATENT AND FREE FLOWING. CALL LIGHT IS WITHIN REACH. SITTER AT BEDSIDE. PATIENT IS ALERT AND ORIENTED WITH NO COMPLAINTS AT THIS TIME ALL NEEDS MET
[2018-12-01 03:52] VITALS: BP 155/93
--- NOTE | 2018-12-01 04:00 | NUR ---
ASSESSMENT PATIENT IS SITTING AT THE SIDE OF THE BED. NO COMPLAINTS OF PAIN AT THIS TIME. NO SHORTNESS OF BREATH. NO SIGNS OF DISTRESS. RAMÍREZ CATH IN PLACE AND AT BEDSIDE PATENT AND FREE FLOWING. CALL LIGHT IS WITHIN REACH. SITTER AT BEDSIDE. PATIENT IS ALERT AND ORIENTED WITH NO COMPLAINTS AT THIS TIME ALL NEEDS MET
[2018-12-01 04:34] LABS: HEMATOCRIT 39.1 % (42-54); MEAN CORPUSCULAR HEMOGLOBIN 32.7 pg (27.0-33.0); MEAN CORPUSCULAR HGB CONC 34.2 g/dL (32.0-36.0); MEAN CORPUSCULAR VOLUME 95.9 fL (79-99); PLATELET COUNT (AUTO) 387 K/uL (130-400); RED BLOOD CELL COUNT(AUTO) 4.08 MIL/uL (4.50-6.20); RED CELL DISTRIBUTION WIDTH 13.9 % (11.0-15.5); WHITE BLOOD COUNT (AUTO) 9.9 K/uL (4.8-10.8)
[2018-12-01 04:43] LABS: CREATININE 0.9 mg/dL (0.5-1.5); POTASSIUM 3.9 mmol/L (3.5-5.1)
[2018-12-01] MEDS: ZOSYN 3.375GM+NS 50ML 50 ML IV SCH ×3 (05:22→20:18)
[2018-12-01 07:00] VITALS: BP 156/102
--- NOTE | 2018-12-01 07:36 | NUR ---
ELEVATED BP BLOOD PRESSURE NOTED TO BE 156/102 WITH PULSE OF 83. PATIENT IS ASYMPTOMATIC. DR. ROSE MADE AWARE AT BEDSIDE. PER MD, NO NEW ORDERS, OK TO GIVE PENDING 9AM MEDICATIONS INCLUDING METOPROLOL.
[2018-12-01] MEDS: DIGOXIN 125 MCG TABLET PO SCH (08:33)
[2018-12-01] MEDS: FAMOTIDINE 20MG TAB 20 MG TAB PO SCH ×2 (08:33→20:18)
[2018-12-01] MEDS: ATORVASTATIN CALCIUM 20 MG TABLET PO SCH (08:33)
[2018-12-01] MEDS: AMIODARONE HCL 200 MG TABLET PO SCH (08:33)
[2018-12-01] MEDS: METOPROLOL TARTRATE 50 MG TAB PO SCH ×2 (08:33→20:18)
[2018-12-01] MEDS: LIDOCAINE 5% TOPICAL PATCH TP SCH (08:34)
[2018-12-01] MEDS: VANCOMYCIN 750MG + NS 250 ML IV SCH ×2 (08:44)
[2018-12-01 10:53] VITALS: BP 159/100
--- NOTE | 2018-12-01 11:00 | NUR ---
REPEAT ELEVATED BP S/P METOPROLOL AND AMIODARONE, DIGOXIN. BP NOTED AT 159/[address] ROSE, MADE AWARE, NO NEW ORDERS. WILL CONTINUE TO MONITOR PT CLOSELY.
[2018-12-01 15:20] VITALS: BP 124/65
[2018-12-01] MEDS: VANCOMYCIN 500MG+NS 100ML 100 ML IV SCH ×2 (16:30→23:53)
[2018-12-01 19:00] VITALS: BP 150/88
[2018-12-01] MEDS: QUETIAPINE FUMARATE 25 MG TAB PO SCH (20:18)
[2018-12-01 23:47] VITALS: BP 139/66
[2018-12-02] MEDS: ACETAMINOPHEN 325 MG TAB PO PRN ×3 (00:20→17:00)
[2018-12-02 03:43] LABS: HEMATOCRIT 40.3 % (42-54); MEAN CORPUSCULAR HEMOGLOBIN 32.8 pg (27.0-33.0); MEAN CORPUSCULAR HGB CONC 33.9 g/dL (32.0-36.0); MEAN CORPUSCULAR VOLUME 96.7 fL (79-99); PLATELET COUNT (AUTO) 379 K/uL (130-400); RED BLOOD CELL COUNT(AUTO) 4.17 MIL/uL (4.50-6.20); RED CELL DISTRIBUTION WIDTH 14.1 % (11.0-15.5); WHITE BLOOD COUNT (AUTO) 10.4 K/uL (4.8-10.8)
[2018-12-02 03:50] VITALS: BP 136/85
[2018-12-02 03:53] LABS: CREATININE 0.9 mg/dL (0.5-1.5); POTASSIUM 4.3 mmol/L (3.5-5.1)
[2018-12-02] MEDS: ZOSYN 3.375GM+NS 50ML 50 ML IV SCH ×3 (05:52→21:18)
--- NOTE | 2018-12-02 06:36 | NUR ---
Patient remains with sitter Patient able knows person, place , time. During the night patient becomes pleasantly confused. Attempts to get out of bed. Patient has to be reoriented often. Tolerating IV antibiotics. No N/V/D. No c/o chest pain or sob.
--- NOTE | 2018-12-02 07:40 | NUR ---
ASSESSMENT ENCOUNTERED PT ASLEEP BUT AROUSEABLE, A&OX3, CALM COOPERATIVE AND DOES NOT APPEAR TO BE IN ANY DISTRESS NOR ANY NEURO DEFICITS PRESENT. PT IS ABLE TO TOLERATE FOODS, FLUIDS AND MEDICATION WITH NO THROAT CLEARING OR COUGH. PICC LINE TO URSZULA, SITE DRY AND INTACT. CALL LIGHT WITHIN REACH, BED ALARM ACTIVATED, SITTER AT BEDSIDE.
[2018-12-02 08:14] VITALS: BP 145/86
[2018-12-02] MEDS: ATORVASTATIN CALCIUM 20 MG TABLET PO SCH (09:06)
[2018-12-02] MEDS: FAMOTIDINE 20MG TAB 20 MG TAB PO SCH ×2 (09:07→21:18)
[2018-12-02] MEDS: METOPROLOL TARTRATE 50 MG TAB PO SCH ×2 (09:07→21:18)
[2018-12-02] MEDS: AMIODARONE HCL 200 MG TABLET PO SCH (09:07)
[2018-12-02] MEDS: LIDOCAINE 5% TOPICAL PATCH TP SCH (09:07)
[2018-12-02] MEDS: DIGOXIN 125 MCG TABLET PO SCH (09:07)
[2018-12-02] MEDS: VANCOMYCIN 500MG+NS 100ML 100 ML IV SCH ×2 (09:08→16:59)
[2018-12-02 11:38] VITALS: BP 129/75
--- NOTE | 2018-12-02 11:39 | NUR ---
HEYDI PLAN VISITED WITH PATIENT AND SPOUSE. PATIENT STILL ON A 1:1. GAVE SPOUSE LIST OF IN NETWORK FACILITIES SO THAT SHE CAN GO TOUR OR ASK FAMILY AND FRIENDS WHICH THEY WOULD RECOMMEND. SAID SHE DOES NOT KNOW ANYTHING ABOUT FACILITIES. RECOMMENDED AGAIN TO GO TOUR. RAY WILL CONTINUE TO FOLLOW. Addendum: 12/02/18 at 1142 by SUNI PAKCER RN CM Amended: Links added.
[2018-12-02 15:28] VITALS: BP 147/73
[2018-12-02 19:30] VITALS: BP 144/78
[2018-12-02] MEDS: QUETIAPINE FUMARATE 25 MG TAB PO SCH (21:18)
[2018-12-02 23:40] VITALS: BP 130/71
[2018-12-03] MEDS: VANCOMYCIN 500MG+NS 100ML 100 ML IV SCH ×3 (00:34→17:26)
[2018-12-03 04:00] VITALS: BP 160/91
[2018-12-03 04:17] LABS: HEMATOCRIT 41.1 % (42-54); MEAN CORPUSCULAR HEMOGLOBIN 32.5 pg (27.0-33.0); MEAN CORPUSCULAR HGB CONC 33.9 g/dL (32.0-36.0); PLATELET COUNT (AUTO) 376 K/uL (130-400); RED BLOOD CELL COUNT(AUTO) 4.29 MIL/uL (4.50-6.20); RED CELL DISTRIBUTION WIDTH 14.1 % (11.0-15.5); WHITE BLOOD COUNT (AUTO) 10.3 K/uL (4.8-10.8)
[2018-12-03 04:34] LABS: CREATININE 0.9 mg/dL (0.5-1.5); POTASSIUM 3.9 mmol/L (3.5-5.1)
[2018-12-03] MEDS: ZOSYN 3.375GM+NS 50ML 50 ML IV SCH ×2 (05:33→13:20)
[2018-12-03 08:13] VITALS: BP 151/94
[2018-12-03] MEDS: FAMOTIDINE 20MG TAB 20 MG TAB PO SCH ×2 (08:28→21:09)
[2018-12-03] MEDS: AMIODARONE HCL 200 MG TABLET PO SCH (08:28)
[2018-12-03] MEDS: DIGOXIN 125 MCG TABLET PO SCH (08:29)
[2018-12-03] MEDS: METOPROLOL TARTRATE 50 MG TAB PO SCH ×2 (08:29→21:08)
[2018-12-03] MEDS: ATORVASTATIN CALCIUM 20 MG TABLET PO SCH (08:29)
[2018-12-03] MEDS: LIDOCAINE 5% TOPICAL PATCH TP SCH (08:29)
[2018-12-03 11:51] VITALS: BP 143/83
--- NOTE | 2018-12-03 11:56 | NUR ---
DC PLAN VISITED WITH PATIENT. PATIENT GAVE VERBAL CONSENT FOR [facility] NURSE PORSHA IS WITNESS. INFO SENT VIA EMAIL AND FAX. REP NOTIFIED. PENDING DR. Reyna FOR FINAL ABX RECOMMENDATIONS. Addendum: 12/03/18 at 1157 by SUNI PACKER RN Amended: Links added.
[2018-12-03 16:28] VITALS: BP 141/77
[2018-12-03 19:28] VITALS: BP 160/80
[2018-12-03] MEDS: QUETIAPINE FUMARATE 25 MG TAB PO SCH (21:09)
[2018-12-03 23:23] VITALS: BP 148/83
[2018-12-04] MEDS: VANCOMYCIN 500MG+NS 100ML 100 ML IV SCH ×2 (00:56→08:41)
[2018-12-04 03:53] VITALS: BP 163/85
[2018-12-04 07:55] VITALS: BP 166/68
[2018-12-04] MEDS: LIDOCAINE 5% TOPICAL PATCH TP SCH (08:41)
[2018-12-04] MEDS: FAMOTIDINE 20MG TAB 20 MG TAB PO SCH (08:42)
[2018-12-04] MEDS: ATORVASTATIN CALCIUM 20 MG TABLET PO SCH (08:42)
[2018-12-04] MEDS: METOPROLOL TARTRATE 50 MG TAB PO SCH (08:42)
[2018-12-04] MEDS: AMIODARONE HCL 200 MG TABLET PO SCH (08:43)
[2018-12-04] MEDS: DIGOXIN 125 MCG TABLET PO SCH (08:43)
[2018-12-04 11:39] VITALS: BP 157/93
--- NOTE | 2018-12-04 12:30 | NUR ---
SBAR REPORT HANDED SHIRLEY RAMSAY. ALL QUESTIONS ANSWERED.
--- NOTE | 2018-12-04 12:59 | NUR ---
HEYDI DESAI CALLED AT 1009 SAID PATIENT ACCEPTED. LET NURSE AND BUILDING CONSTRUCTION IRONWORKER BENJI KNOW OF ACCEPTANCE. PATIENT WILL GO VIA FACILITY VEHICLE. Addendum: 12/04/18 at 1300 by SUNI PACKER RN CM Amended: Links added.
--- NOTE | 2018-12-04 13:20 | NUR ---
PATIENT WAS PICKED UP BY TRANSPORT PERSONNEL FROM [facility]. DISCHARGE INSTRUCTIONS/INFORMATION GIVEN TO PATIENT. TEACH BACK METHOD UTILIZED TO EDUCATE PATIENT ON DIET, MEDICATIONS, AND OTHER TREATMENTS. PICC LINE DRESSING WAS CHANGED ASEPTICALLY. ALL PORTS WORKING WITH SLUGGISH BLOOD RETURN FROM BOTH. LIDOCAINE PATCH TO LOWER BACK STILL IN PLACE. TELE PACK REMOVED AND RETURNED. ALL BELONGINGS WERE PACKED AND TAKEN HOME BY FAMILY MEMBER.
== END 2018-12-04 14:40 | DRG 871 ==
LOC: EDH 12:54 → EDHIP 16:00 → UNDOADMIN 16:00 → 2DH 17:54 → 2BH 11-24 14:49 → 2AH 11-27 15:43
PROVIDERS: ADMIT Internal Medicine; ATTEND Internal Medicine
PROC: 5A2204Z Restoration of Cardiac Rhythm, Single (ICD-10-PCS; 2018-11-24)
PROC: 02HV33Z Insertion of Infusion Device into Superior Vena Cava, Percutaneous Approach (ICD-10-PCS; principal; 2018-11-28)
PROC: 02HV33Z Insertion of Infusion Device into Superior Vena Cava, Percutaneous Approach (ICD-10-PCS; 2018-11-28)
DX: A41.9 Sepsis, unspecified organism (principal); G93.41 Metabolic encephalopathy; I49.02 Ventricular flutter; E46 Unspecified protein-calorie malnutrition; N39.0 Urinary tract infection, site not specified; I74.5 Embolism and thrombosis of iliac artery; I45.2 Bifascicular block; I13.0 Hypertensive heart and chronic kidney disease with heart failure and stage 1 through stage 4 chronic kidney disease, or unspecified chronic kidney disease; I50.22 Chronic systolic (congestive) heart failure; I47.2 Ventricular tachycardia; I48.91 Unspecified atrial fibrillation; I25.5 Ischemic cardiomyopathy; R65.20 Severe sepsis without septic shock; N18.3 Chronic kidney disease, stage 3 (moderate); M60.9 Myositis, unspecified; M51.9 Unspecified thoracic, thoracolumbar and lumbosacral intervertebral disc disorder; K52.9 Noninfective gastroenteritis and colitis, unspecified; I72.3 Aneurysm of iliac artery; I70.201 Unspecified atherosclerosis of native arteries of extremities, right leg; I48.2 Chronic atrial fibrillation; I45.10 Unspecified right bundle-branch block; I25.82 Chronic total occlusion of coronary artery; I25.10 Atherosclerotic heart disease of native coronary artery without angina pectoris; E66.01 Morbid (severe) obesity due to excess calories; E78.5 Hyperlipidemia, unspecified; G47.33 Obstructive sleep apnea (adult) (pediatric); G89.29 Other chronic pain; N28.1 Cyst of kidney, acquired; N40.0 Benign prostatic hyperplasia without lower urinary tract symptoms; R29.6 Repeated falls; Z68.35 Body mass index [BMI] 35.0-35.9, adult; Z74.01 Bed confinement status; Z79.82 Long term (current) use of aspirin; Z79.899 Other long term (current) drug therapy; Z86.79 Personal history of other diseases of the circulatory system; Z87.891 Personal history of nicotine dependence; Z95.1 Presence of aortocoronary bypass graft; Z88.2 Allergy status to sulfonamides
CPT/HCPCS: 36415; 36600; 70450; 71045; 72100; 72125; 72131; 72158; 80048; 80053; 80202; 81001; 82140; 82550; 82803; 82948; 83605; 83735; 83874; 83880; 84100; 84132; 84443; 84484; 85025; 85027; 85610; 85651; 85730; 86140; 86308; 86592; 87040; 87088; 87804; 92610; 93005; 93306; 97039; 99291; A9579; C1894; G0378; J0282; J0360; J1160; J1170; J1940; J2060; J2543; J3370; J3475; J3480; J3490; J7030; J7060

== ENCOUNTER 2019-01-24 09:48 | Day surgery (SDC) | payer OTHER ==
[2019-01-22 13:07] LABS: BASOPHILS % (AUTO) 0.7 % (0.0-5.0); EOSINOPHILS % (AUTO) 3.7 % (0.0-8.0); HEMATOCRIT 41.8 % (42-54); LYMPHOCYTES % (AUTO) 22.5 % (21.0-51.0); MEAN CORPUSCULAR HEMOGLOBIN 31.5 pg (27.0-33.0); MEAN CORPUSCULAR HGB CONC 33.8 g/dL (32.0-36.0); MEAN CORPUSCULAR VOLUME 93.2 fL (79-99); MONOCYTES % (AUTO) 10.7 % (3.0-13.0); NEUTROPHILS % (AUTO) 62.4 % (40.0-77.0); PLATELET COUNT (AUTO) 276 K/uL (130-400); RED BLOOD CELL COUNT(AUTO) 4.49 MIL/uL (4.50-6.20); RED CELL DISTRIBUTION WIDTH 14.3 % (11.0-15.5); WHITE BLOOD COUNT (AUTO) 9.4 K/uL (4.8-10.8)
[2019-01-22 13:10] LABS: APPEARANCE,URINE Clear (CLEAR); BILIRUBIN,URINE Negative (NEGATIVE); COLOR,URINE Yellow (YELLOW); GLUCOSE, URINE (UA) Negative (NEGATIVE); KETONES,URINE Negative (NEGATIVE); LEUKOCYTE ESTERASE ,URINE Negative (NEGATIVE); NITRATE,URINE Negative (NEGATIVE); OCCULT BLOOD,URINE Negative (NEGATIVE); PH,URINE 5.5 (5.0-8.0); PROTEIN,URINE Negative (NEGATIVE); UROBILINOGEN,URINE 0.2 mg/dL (0.2-1.0)
[2019-01-22 13:17] LABS: CREATININE 1.3 mg/dL (0.5-1.5); POTASSIUM 4.3 mmol/L (3.5-5.1)
[2019-01-22 13:23] LABS: INR 1.02 (0.85-1.15); PARTIAL THROMBOPLASTIN TIME 23.6 SEC (26.3-35.5); PROTHROMBIN TIME 10.7 SEC (9.6-11.6)
[2019-01-22 14:06] VITALS: BP 133/89
--- NOTE | 2019-01-23 13:39 | NUR ---
LABS ABNORMAL LABS REPORTED TO DINO NELSON, NO FURTHER ORDERS GIVEN.
[~2019-01-24] VITALS: Ht 182.9 cm; Wt 108.0 kg
[2019-01-24] VITALS (9 sets, daily range): BP systolic 101–151; BP diastolic 65–92
[~2019-01-24 09:48] MED LIST changes: +ACETAMINOPHEN 325 MG TAB PO PRN; +ASPI-555 PO; +ATOR40TA71 PO; +LIDOP TP; +NITR0.4T50 SL; -PRAV10TA39 PO; +SENN-107 PO; +SODIUM CHLORIDE 0.9% 1000ML 1,000 ML IV ONE; +SODIUM CHLORIDE 0.9% 500ML 500 ML IV SCH; +TAMS-1 PO
--- NOTE | 2019-01-24 10:34 | NUR ---
skin right great toe- underneath to small opening, bandaid in place. no drainage noted. no redness or drainage . pt states had callux removed Addendum: 01/24/19 at 1037 by MARSHA CEJA RN Amended: Links added.
--- NOTE | 2019-01-24 10:36 | NUR ---
skin dry and scaly skin to entire body. Addendum: 01/24/19 at 1037 by MARSHA CEJA RN Amended: Links added.
[2019-01-24] MEDS ORDERED: HYDR25TA PO (10:44)
--- NOTE | 2019-01-24 14:43 | NUR ---
report report given to Anastasiya Arcos RN to resume care for patient
[2019-01-24] MEDS ORDERED: NITROGLYCERIN 5 MG/ML 10 ML VIAL IV ONE (15:16)
[2019-01-24] MEDS ORDERED: SODIUM BICARB 50MEQ 50ML VIAL ONE (15:16)
[2019-01-24] MEDS ORDERED: HEPARIN SODIUM 1000UNIT/ML 10ML VIAL ONE (15:16)
[2019-01-24] MEDS ORDERED: IOHEXOL-350 50ML VIAL IV ONE (15:17)
[2019-01-24] MEDS ORDERED: LIDOCAINE HCL 2% 20ML ONE (15:17)
[2019-01-24] MEDS ORDERED: IOHEXOL 350 MG/ML 100ML INFUS..BTL IV ONE (15:17)
[2019-01-24] MEDS ORDERED: CEFAZOLIN SODIUM 1 GM VIAL ONE (15:54)
[2019-01-24] MEDS ORDERED: SODIUM CHLORIDE 0.9% 1000ML 1,000 ML IV SCH (16:22)
--- NOTE | 2019-01-24 16:29 | NUR ---
REPORT RECEIVED RECEIVED REPORT FROM KENNEDY COREAS RN. PER KENNEDY, PATIENT HAS NO PULSE TO RIGHT DORSALIS PEDIS WITH DOPPLER AND DR OCONNOR AWARE.
[2019-01-24] MEDS ORDERED: ACETAMINOPHEN-CODEINE 300/30MG TAB PO PRN ×2 (16:30)
--- NOTE | 2019-01-24 16:47 | NUR ---
POST CATH ASSESSMENT DRESSING TO RIGHT GROIN WITH DRESSING DRY/INTACT. NO HEMATOMA OR DRAINAGE NOTED. DORSALIS PEDIS PULSE TO RLE ABSENT WITH DOPPLER, RIGHT FOOT COOL TO TOUCH, CAPILLARY REFILL <3SECS, SENSATION INTACT. DORSALIS PEDIS PULSE PRESENT TO LLE WITH DOPPLER, LEFT FOOT COOL TO TOUCH, CAPILLARY REFILL <3SECS, SENSATION INTACT.
--- NOTE | 2019-01-24 16:47 | NUR ---
PATIENT RETURNED PATIENT BROUGHT BACK FROM [facility] VIA BED BY FÁTIMA VARGAS AND FÁTIMA NAVA. PATIENT AAOX3, RESPIRATIONS UNLABORED, VITAL SIGNS STABLE. PATIENT DENIES ANY PAIN AT THIS TIME. DRESSING TO RIGHT GROIN DRY AND INTACT, NO HEMATOMA OR DRAINAGE NOTED. AREA SOFT AND NONTENDER.
--- NOTE | 2019-01-24 20:30 | NUR ---
PATIENT DISCHARGED DRESSING TO RIGHT GROIN WITH DRESSING DRY/INTACT. NO HEMATOMA OR DRAINAGE NOTED. PATIENT DISCHARGED FROM FACILITY VIA WHEELCHAIR AND ASSISTED INTO PRIVATE VEHICLE DRIVEN BY SIGNIFICANT OTHER.
== END 2019-01-24 20:30 | disposition home or self-care (01) ==
LOC: DAH 09:48
PROVIDERS: ATTEND Internal Medicine Cardiovascular Disease
DX: I25.810 Atherosclerosis of coronary artery bypass graft(s) without angina pectoris (principal); I34.0 Nonrheumatic mitral (valve) insufficiency; I10 Essential (primary) hypertension; E78.5 Hyperlipidemia, unspecified; M54.17 Radiculopathy, lumbosacral region; M54.12 Radiculopathy, cervical region; I48.91 Unspecified atrial fibrillation; Z79.899 Other long term (current) drug therapy; Z88.2 Allergy status to sulfonamides
CPT/HCPCS: 36415; 71045; 80048; 81003; 85025; 85610; 85730; 93005; 93459; A4215; A4216; A4221; A4222; A4223 ×3; A4606; C1760; C1769; C1894 ×2; J0690; J1644; J3490 ×3; J7030; Q9965; Q9967 ×2

== ENCOUNTER → 2019-02-13 | Outpatient (CLI) | payer OTHER ==
[~2019-02-13] MED LIST changes: -ACETAMINOPHEN 325 MG TAB PO PRN; -HYDR12.530 PO; +HYDR25TA PO; -SODIUM CHLORIDE 0.9% 1000ML 1,000 ML IV ONE; -SODIUM CHLORIDE 0.9% 500ML 500 ML IV SCH
== END | disposition home or self-care (01) ==
LOC: LAB 09:17
PROVIDERS: ATTEND Internal Medicine Cardiovascular Disease
DX: I73.9 Peripheral vascular disease, unspecified (principal); Z95.1 Presence of aortocoronary bypass graft; Z95.5 Presence of coronary angioplasty implant and graft; I11.9 Hypertensive heart disease without heart failure; I48.91 Unspecified atrial fibrillation; I25.10 Atherosclerotic heart disease of native coronary artery without angina pectoris; E78.5 Hyperlipidemia, unspecified; Z88.2 Allergy status to sulfonamides; Z87.891 Personal history of nicotine dependence
CPT/HCPCS: 36415; 82565; 84520

== ENCOUNTER → 2019-02-18 | Outpatient (CLI) | payer OTHER ==
[~2019-02-18] MED LIST changes: +IOHEXOL 350 MG/ML 100ML INFUS..BTL IV ONE; +IOHEXOL-350 50ML VIAL IV ONE
== END | disposition home or self-care (01) ==
LOC: RAH 07:41
PROVIDERS: ATTEND Internal Medicine Cardiovascular Disease
DX: I71.4 Abdominal aortic aneurysm, without rupture (principal); I74.5 Embolism and thrombosis of iliac artery; I72.3 Aneurysm of iliac artery; I73.9 Peripheral vascular disease, unspecified; Z95.1 Presence of aortocoronary bypass graft; Z95.5 Presence of coronary angioplasty implant and graft
CPT/HCPCS: 75635; Q9967 ×2

== ENCOUNTER 2019-06-18 05:52 | Observation (INO) | payer OTHER ==
[2019-06-16 11:59] LABS: BASOPHILS % (AUTO) 0.3 % (0.0-5.0); EOSINOPHILS % (AUTO) 5.6 % (0.0-8.0); HEMATOCRIT 41.9 % (42-54); LYMPHOCYTES % (AUTO) 20.7 % (21.0-51.0); MEAN CORPUSCULAR HEMOGLOBIN 30.2 pg (27.0-33.0); MEAN CORPUSCULAR HGB CONC 31.5 g/dL (32.0-36.0); MEAN CORPUSCULAR VOLUME 95.9 fL (79-99); MONOCYTES % (AUTO) 7.8 % (3.0-13.0); NEUTROPHILS % (AUTO) 65.2 % (40.0-77.0); PLATELET COUNT (AUTO) 267 K/uL (130-400); RED BLOOD CELL COUNT(AUTO) 4.37 MIL/uL (4.50-6.20); RED CELL DISTRIBUTION WIDTH 13.2 % (11.0-15.5); WHITE BLOOD COUNT (AUTO) 10.1 K/uL (4.8-10.8)
[2019-06-16 12:15] LABS: INR 0.97 (0.85-1.15); PARTIAL THROMBOPLASTIN TIME 23.7 SEC (26.3-35.5); PROTHROMBIN TIME 10.5 SEC (9.6-11.6)
[2019-06-16 12:19] LABS: CREATININE 1.1 mg/dL (0.5-1.5); POTASSIUM 4.3 mmol/L (3.5-5.1)
[2019-06-16 12:26] VITALS: BP 118/73
--- NOTE | 2019-06-16 12:39 | NUR ---
no aicd form, called no answer left message , pending call back (during preop)
[~2019-06-18] VITALS: Ht 185.4 cm; Wt 110.9 kg
[2019-06-18] VITALS (12 sets, daily range): BP systolic 80–120; BP diastolic 42–75
[~2019-06-18 05:52] MED LIST changes: +CLOP75TA14 PO; +DOCU100T9 PO; -IOHEXOL 350 MG/ML 100ML INFUS..BTL IV ONE; -IOHEXOL-350 50ML VIAL IV ONE; -LIDOP TP; -SENN-107 PO
[2019-06-18] MEDS ORDERED: IODIXANOL 320 MG/ML 100 ML VIAL ONE (07:31)
[2019-06-18] MEDS ORDERED: MIDAZOLAM HCL 1 MG/ML 2ML VIAL ONE ×4 (07:31→09:08)
[2019-06-18] MEDS ORDERED: BUPIVACAINE/PF 0.25% 30ML VIAL IJ ONE (07:31)
[2019-06-18] MEDS ORDERED: CEFAZOLIN SODIUM 1 GM VIAL ONE ×2 (07:31→08:04)
[2019-06-18] MEDS ORDERED: MEPERIDINE-PF 25 MG/ML SYG ONE ×4 (07:32→09:08)
[2019-06-18] MEDS ORDERED: LIDOCAINE HCL 1% MDV 50ML VIAL ONE (07:32)
[2019-06-18] MEDS ORDERED: SODIUM CHLORIDE 0.9% 1000ML 1,000 ML IV ONE (08:13)
[2019-06-18] MEDS ORDERED: ACETAMINOPHEN-CODEINE 300/30MG TAB PO PRN (09:45)
[2019-06-18] MEDS ORDERED: NITROGLYCERIN 0.4 MG SL TAB SL SCH (09:45)
[2019-06-18] MEDS ORDERED: DOCUSATE SODIUM 100 MG CAP PO PRN (10:00)
--- NOTE | 2019-06-18 15:45 | NUR ---
report to megan pappas rn, pt transported to rm 229.
--- NOTE | 2019-06-18 16:15 | NUR ---
PT WAS ADMITTED TO ROOM 229 VIA W/C AFTER PACEMAKER PLACEMENT, PT IS TO BE DISCHARGED IN AM PER DR. AMBRIZ. PT IS RESTING HAS SLING TO LEFT ARM.
[2019-06-18] MEDS ORDERED: TAMSULOSIN HCL 0.4 MG CAP.ER.24H PO SCH (21:00)
[2019-06-18] MEDS ORDERED: LOSARTAN 100 MG TABLET PO SCH (21:00)
[2019-06-18] MEDS ORDERED: CARVEDILOL 12.5 MG TABLET PO SCH (21:00)
[2019-06-18] MEDS ORDERED: ASPIRIN 81 MG EC TAB PO SCH (21:00)
[2019-06-18] MEDS ORDERED: HYDROCHLOROTHIAZIDE 25 MG TABLET PO SCH (21:00)
[2019-06-18] MEDS ORDERED: AMLODIPINE BESYLATE 5 MG TAB PO SCH (21:00)
[2019-06-18] MEDS ORDERED: ATORVASTATIN CALCIUM 40 MG TABLET PO SCH (21:00)
[2019-06-19] VITALS: BP 129/84
[2019-06-19 04:00] VITALS: BP 114/75
[2019-06-19 08:00] VITALS: BP 114/69
--- NOTE | 2019-06-19 08:30 | NUR ---
AM ASSESSMENT PT LAYING IN BED, HOB ELEVATED 30 DEGREES, RESTING. A/O X 3. NO SOB. NO DISTRESS NOTED. DENIES CHEST PAIN OR DISCOMFORT. DENIES PALPITATIONS. DENIES INCISIONAL PAIN. TELE: PACED. LT UPPER CHEST PRESSURE DSG REMOVED. TELFA & OPSITE TO INCISION SITE. DSG DRY & INTACT. NO BLEEDING, NO HEMATOMA NOTED. SLING TO LT ARM. PPM ARM PRECAUTIONS REINFORCED. DENIES N/V AND/OR DIARRHEA. UP W/ASSISTANCE. INSTRUCTED TO CALL FOR ASSISTANCE. CALL ISAIAH W/IN REACH.
[2019-06-19] MEDS ORDERED: CLOPIDOGREL BISULFATE 75 MG TAB PO SCH (09:00)
[2019-06-19 12:04] VITALS: BP 137/67
--- NOTE | 2019-06-19 13:05 | NUR ---
DISCHARGE VERBAL & WRITTEN DISCHARGE INSTRUCTIONS REVIEWED & GIVEN TO PT. QUESTIONS ENCOURAGED & CLARIFIED. PROPER CARE & ACTIVITY AFTER BiV PPM PLACEMENT REVIEWED & REINFORCED. PT TO CONTINUE HOME MEDICATIONS. F/U APPT INFO REVIEWED. TELE LUCRECIA REMOVED. IV X 2 DC'D. PT TO GATHER PERSONAL BELONGINGS. WILL NOTIFY STAFF WHEN READY TO BE TAKEN TO PRIVATE VEHICLE.
--- NOTE | 2019-06-19 13:30 | NUR ---
DISCHARGE PT TAKEN TO PRIVATE VEHICLE VIA WC BY Eda SALGUERO PCP. NO DISTRESS NOTED.
--- NOTE | 2019-06-19 15:33 | NUR ---
[id number] Patient signed EAGLE Letter, I faxed EAGLE Letter to [id number] and placed in chart under consent tab
== END 2019-06-19 13:30 | disposition home or self-care (01) ==
LOC: DAH 05:52 → DAHIP 05:53 → DAH 05:53 → 2AH 16:15
PROVIDERS: ADMIT Family Medicine; ATTEND Family Medicine
DX: Z45.02 Encounter for adjustment and management of automatic implantable cardiac defibrillator (principal); I48.20 Chronic atrial fibrillation, unspecified; I25.5 Ischemic cardiomyopathy; E78.5 Hyperlipidemia, unspecified; I25.10 Atherosclerotic heart disease of native coronary artery without angina pectoris; I50.9 Heart failure, unspecified; I11.0 Hypertensive heart disease with heart failure; Z95.5 Presence of coronary angioplasty implant and graft; Z88.2 Allergy status to sulfonamides; I25.2 Old myocardial infarction; Z95.1 Presence of aortocoronary bypass graft; Z98.890 Other specified postprocedural states
CPT/HCPCS: 33225; 33249; 36415; 71045; 80048; 85025; 85610; 85730; 93005; A4215; A4216; A4221; A4222; A4223 ×3; A4606; A4663; C1769; C1882; C1895; C1900; G0378 ×20; J0690 ×2; J2175 ×4; J2250 ×4; J3490 ×2; J7030; Q9967; 99156; 99157

== ENCOUNTER 2019-08-10 20:20 | Inpatient (IN) | payer OTHER ==
[~2019-08-10] VITALS: Ht 185.4 cm; Wt 115.4 kg
[2019-08-10] MEDS ORDERED: AMIODARONE HCL 50 MG/ML 3 ML VIAL ONE (20:39)
[2019-08-10 20:48] LABS: BASOPHILS % (AUTO) 0.2 % (0.0-5.0); HEMATOCRIT 36.6 % (42-54); LYMPHOCYTES % (AUTO) 6.3 % (21.0-51.0); MEAN CORPUSCULAR HEMOGLOBIN 29.6 pg (27.0-33.0); MEAN CORPUSCULAR HGB CONC 32.5 g/dL (32.0-36.0); NEUTROPHILS % (AUTO) 81.9 % (40.0-77.0); PLATELET COUNT (AUTO) 185 K/uL (130-400); RED BLOOD CELL COUNT(AUTO) 4.02 MIL/uL (4.50-6.20); RED CELL DISTRIBUTION WIDTH 13.5 % (11.0-15.5); WHITE BLOOD COUNT (AUTO) 16.8 K/uL (4.8-10.8)
[2019-08-10] MEDS ORDERED: ZOSYN 3.375GM+NS 50ML 50 ML IV ONE (20:57)
[2019-08-10 21:03] LABS: CREATININE 1.3 mg/dL (0.5-1.5); POTASSIUM 3.3 mmol/L (3.5-5.1)
[2019-08-10 21:05] LABS: INR 1.11 (0.85-1.15); PARTIAL THROMBOPLASTIN TIME 27.1 SEC (26.3-35.5); PROTHROMBIN TIME 11.9 SEC (9.6-11.6)
[2019-08-10 21:10] LABS: ALBUMIN 2.9 g/dL (3.5-5.0); BILIRUBIN,TOTAL 1.2 mg/dL (0.2-1.0); MAGNESIUM 1.5 mg/dL (1.80-2.40); TOTAL PROTEIN, SERUM 6.7 g/dL (6.0-8.3)
[2019-08-10 21:13] LABS: B-TYPE NATRIURETIC PEPTIDE 343 pg/mL (0-100)
[2019-08-10] MEDS ORDERED: POTASSIUM BICARB/CIT AC 25 MEQ TABLET.EFF ONE (21:25)
[2019-08-10] MEDS ORDERED: MAGNESIUM OXIDE 400 MG TABLET PO ONE (21:25)
[2019-08-10] MEDS ORDERED: LEVOFLOXACIN 500 MG/D5W 100 ML 100 ML ONE (21:35)
[2019-08-10 21:47] LABS: AMYLASE 17 U/L (25-115)
[2019-08-10 21:50] LABS: APPEARANCE,URINE Cloudy (CLEAR); BILIRUBIN,URINE Negative (NEGATIVE); COLOR,URINE Dark Yellow (YELLOW); GLUCOSE, URINE (UA) Negative (NEGATIVE); KETONES,URINE Negative (NEGATIVE); LEUKOCYTE ESTERASE ,URINE Trace (NEGATIVE); NITRATE,URINE Negative (NEGATIVE); OCCULT BLOOD,URINE Negative (NEGATIVE); PH,URINE 5.5 (5.0-8.0); PROTEIN,URINE POS 1+ mg/dL (NEGATIVE)
[2019-08-10 21:55] LABS: LIPASE < 50 U/L (114-286)
[2019-08-10 21:56] LABS: BACTERIA,URINE Few /HPF (None Seen); HYALINE CASTS, URINE 0-1 /LPF (0-1 /LPF); MUCUS,URINE Rare LPF (None Seen); RBC,URINE 0-1 /HPF (0-1); SQUAMOUS EPITHELIAL CELL,UR Few /HPF (0-2)
[2019-08-10 22:32] VITALS: BP 136/87
[2019-08-10 23:32] VITALS: BP 133/56
[2019-08-11] MEDS ORDERED: CLONIDINE HCL 0.1 MG TABLET PO PRN ×2 (01:00→02:00)
[2019-08-11] MEDS ORDERED: POTASSIUM CHLORIDE 20MEQ/100ML 100 ML IV PRN (01:00)
[2019-08-11] MEDS ORDERED: NITROGLYCERIN 0.4 MG SL TAB SL PRN (01:00)
[2019-08-11] MEDS ORDERED: ACETAMINOPHEN 325 MG TAB PO PRN (01:00)
[2019-08-11] MEDS ORDERED: GUAIFENESIN-DM 200/20 MG 10 ML PO PRN ×2 (01:00→02:00)
[2019-08-11] MEDS ORDERED: POTASSIUM CHLORIDE 10% ELIXIR 20 MEQ/15 ML UDCUP PO PRN (01:00)
[2019-08-11] MEDS ORDERED: DiphenhydrAMINE HCL 50 MG/ML VIAL IV PRN (01:00)
[2019-08-11] MEDS ORDERED: ONDANSETRON HCL 4 MG/2 ML VIAL IVP PRN (01:00)
[2019-08-11] MEDS ORDERED: LIDOCAINE HCL-MPF 1% 2ML VIAL IV PRN (01:00)
[2019-08-11] MEDS ORDERED: ZOLPIDEM TARTRATE 5 MG TAB PO PRN (01:00)
[2019-08-11] MEDS: SODIUM CHLORIDE 0.9% 1000ML 1,000 ML IV SCH ×2 (01:24→14:20)
[2019-08-11] MEDS ORDERED: GUAIFENESIN SUGAR-FREE 100 MG/5 ML UDCUP PO PRN (02:00)
[2019-08-11] MEDS ORDERED: LACTULOSE 20 GM/30 ML UDCUP PO PRN (02:00)
[2019-08-11] MEDS ORDERED: MAG HYDROX/AL HYDROX/SIMETH ES 30 ML SUSP UDCUP PO PRN (02:00)
[2019-08-11 03:49] VITALS: BP 136/77
[2019-08-11 04:13] LABS: HEMATOCRIT 36.2 % (42-54); MEAN CORPUSCULAR HEMOGLOBIN 30.5 pg (27.0-33.0); MEAN CORPUSCULAR HGB CONC 32.9 g/dL (32.0-36.0); MEAN CORPUSCULAR VOLUME 92.8 fL (79-99); RED BLOOD CELL COUNT(AUTO) 3.9 MIL/uL (4.50-6.20); RED CELL DISTRIBUTION WIDTH 13.4 % (11.0-15.5); WHITE BLOOD COUNT (AUTO) 14.2 K/uL (4.8-10.8)
[2019-08-11 04:36] LABS: ALBUMIN 2.7 g/dL (3.5-5.0); BILIRUBIN,TOTAL 1.3 mg/dL (0.2-1.0); CREATININE 1.2 mg/dL (0.5-1.5); MAGNESIUM 1.5 mg/dL (1.80-2.40); POTASSIUM 3.9 mmol/L (3.5-5.1); TOTAL PROTEIN, SERUM 6.7 g/dL (6.0-8.3)
--- NOTE | 2019-08-11 05:06 | NUR ---
PAGE 0500: hospitalist deputy coroner paged by community nutrition educator at this time. pending call back.
[2019-08-11] MEDS: ZOSYN 3.375GM+NS 50ML 50 ML IV SCH ×3 (05:38→22:15)
--- NOTE | 2019-08-11 06:14 | NUR ---
DEFIBRILLATOR FIRED 0610: patient indicated defibrillator fired at this time. 0614: MD traylor paged by community services coordinator 0615: pvc [employer]ormedia monitor, ambrocio, confirmed defibrillator discharge. will print ekg strip and place in chart.
[2019-08-11 08:00] VITALS: BP 154/76
[2019-08-11] MEDS: PANTOPRAZOLE SODIUM 40 MG TABLET.DR PO SCH (08:28)
[2019-08-11] MEDS ORDERED: PANTOPRAZOLE 40 MG/VIAL IVP SCH (09:00)
[2019-08-11 11:38] VITALS: BP 125/48
--- NOTE | 2019-08-11 12:51 | NUR ---
PHYSICIAN ROUNDS DR FRANK MARIE ROUNDED ON PATIENT PLACED NEW ORDERS FOR NEBS Q 4 HOURS, MAG , AND LABS IN THE AM CBC AND CMP
--- NOTE | 2019-08-11 13:45 | NUR ---
CARDIO CONSULTS DR GAGE IN TO SEE PATIENT ORDERED FOR EKG NOW.
[2019-08-11] MEDS ORDERED: ALBUTEROL SULFATE 0.042% 1.25 MG/3 ML INH IH SCH (14:00)
[2019-08-11 15:35] LABS: CREATINE KINASE, TOTAL 56 U/L (21-232); MYOGLOBIN 122 ng/mL (10-92); TROPONIN I < 0.04 ng/mL (0.00-0.06)
[2019-08-11 16:00] VITALS: BP 136/56
[2019-08-11] MEDS: SPIRONOLACTONE 25 MG TAB PO SCH (16:09)
[2019-08-11] MEDS: ACETAMINOPHEN 325 MG TAB PO PRN (16:09)
[2019-08-11] MEDS: LOSARTAN 50 MG TABLET PO SCH (16:09)
[2019-08-11] MEDS: MAGNESIUM 2GM PREMIX 50ML 50 ML IV SCH ×2 (16:21→18:55)
[2019-08-11] MEDS ORDERED: FUROSEMIDE 10 MG/ML 2ML VIAL IV SCH (16:40)
--- NOTE | 2019-08-11 16:58 | NUR ---
INABDELRAHMAN SPOKE W PT VIA PHONE. STATES INDEPENDNET, LVIES ALONE, DIRVES, USES ROLLING WALKER AND CANE, HOME SAFE AND ACCESSIBLE WITH SHOWER CHAIR- NO PROVIDER SERVICES, 'GETTING HARDER TO DO FOR MYSELF' WILL REFER TO SUNNY SALAS AT [facility] ON [address]. PT HERE FOR AICD FIRING, VERY UNCOMFORTABLE. DC PLAN IS HOME, ALPESH ROMAN ON FACE SHEET TO PROVIDE TRANSPORT Addendum: 08/11/19 at 1700 by OCTAVIO RM RN CM Amended: Links added.
[2019-08-11 19:30] VITALS: BP 102/50
[2019-08-11] MEDS: APIXABAN 5 MG TABLET PO SCH (20:08)
[2019-08-11] MEDS: ATORVASTATIN CALCIUM 40 MG TABLET PO SCH (20:08)
[2019-08-11] MEDS: CARVEDILOL 6.25 MG TABLET PO SCH (20:09)
--- NOTE | 2019-08-11 20:10 | NUR ---
MEDS SHIFT ASSESSMENT ASSESSMENT DONE, PLEASE REFER TO CHART. DUE MEDS ADMINISTERED, TOLERATED WELL. KEPT RESTED AND COMFORTABLE. CALL LIGHT WITHIN REACH. WILL MONITOR PT. Addendum: 08/11/19 at 2323 by ONEAL JACOBS RN RN Amended: Links added.
[2019-08-11] MEDS: LEVOFLOXACIN 500 MG/D5W 100 ML 100 ML IV SCH (20:55)
[2019-08-11] MEDS: ALBUTEROL SULFATE 0.042% 1.25 MG/3 ML INH IH SCH (21:38)
[2019-08-11] MEDS: DIPHENHYDRAMINE HCL 25 MG CAPSULE PO PRN (22:16)
--- NOTE | 2019-08-11 22:16 | NUR ---
MEDS PT COMPLAINTS OF ITCHING ON LESIONS TO BILATERAL UPPER EXTREMITIES. DUE MARISSA NICOLAS. MEDICATED WITH BENADRYL PO. WILL RE-ASSESS PT. ENCOURAGED TO REST AND SLEEP.
[2019-08-11 23:27] VITALS: BP 97/50
[2019-08-12] MEDS: SODIUM CHLORIDE 0.9% 1000ML 1,000 ML IV SCH ×2 (00:37→17:00)
--- NOTE | 2019-08-12 02:00 | NUR ---
ROUNDS PT RESTING WELL, FAIRLY ASLEEP WITH RESPIRATIONS EVEN AND UNLABORED. NO NOTED DISTRESS. KEPT UNDISTURBED FOR NOW. CALL LIGHT WITHIN REACH. WILL MONITOR PT.
[2019-08-12 04:00] VITALS: BP 111/59
[2019-08-12 04:46] LABS: BASOPHILS % (AUTO) 0.3 % (0.0-5.0); EOSINOPHILS % (AUTO) 7.7 % (0.0-8.0); HEMATOCRIT 31.4 % (42-54); LYMPHOCYTES % (AUTO) 4.9 % (21.0-51.0); MEAN CORPUSCULAR HEMOGLOBIN 29.7 pg (27.0-33.0); MEAN CORPUSCULAR HGB CONC 31.8 g/dL (32.0-36.0); MEAN CORPUSCULAR VOLUME 93.2 fL (79-99); MONOCYTES % (AUTO) 5.1 % (3.0-13.0); PLATELET COUNT (AUTO) 170 K/uL (130-400); RED BLOOD CELL COUNT(AUTO) 3.37 MIL/uL (4.50-6.20); RED CELL DISTRIBUTION WIDTH 13.4 % (11.0-15.5); WHITE BLOOD COUNT (AUTO) 10.9 K/uL (4.8-10.8)
[2019-08-12 05:10] LABS: ALBUMIN 2.1 g/dL (3.5-5.0); CREATININE 1.2 mg/dL (0.5-1.5); POTASSIUM 3.3 mmol/L (3.5-5.1); TOTAL PROTEIN, SERUM 5.7 g/dL (6.0-8.3)
[2019-08-12] MEDS: ZOSYN 3.375GM+NS 50ML 50 ML IV SCH ×3 (05:47→21:49)
--- NOTE | 2019-08-12 05:47 | NUR ---
MEDS AWAKENED PT FOR DUE MEDS, POTASSIUM REPLACEMENT STARTED KCL=3.3. PT ASKS FOR BENADRYL HE CLAIMS OF ITCHING ON HIS ARMS. PT TOLERATED MEDS WELL. KEPT RESTED IN BED. FOR MORE CARE.
[2019-08-12] MEDS: POTASSIUM CHLORIDE 20 MEQ ERTAB PO PRN ×3 (05:48→21:49)
[2019-08-12] MEDS: PANTOPRAZOLE SODIUM 40 MG TABLET.DR PO SCH (05:48)
[2019-08-12] MEDS: DIPHENHYDRAMINE HCL 25 MG CAPSULE PO PRN (05:53)
[2019-08-12 07:23] VITALS: BP 95/66
[2019-08-12] MEDS: SPIRONOLACTONE 25 MG TAB PO SCH (09:27)
[2019-08-12] MEDS: LOSARTAN 50 MG TABLET PO SCH (09:27)
[2019-08-12] MEDS: FUROSEMIDE 20 MG TABLET PO SCH (09:27)
[2019-08-12] MEDS: CARVEDILOL 12.5 MG TABLET PO SCH (09:28)
[2019-08-12] MEDS: APIXABAN 5 MG TABLET PO SCH ×2 (09:29→21:48)
[2019-08-12] MEDS ORDERED: AMIODARONE HCL 450 MG in DEXTROSE 5%-WATER 250 ML IV SCH (09:45)
[2019-08-12] MEDS ORDERED: AMIODARONE HCL 150 MG in DEXTROSE 5%-WATER 100 ML IV SCH (09:45)
[2019-08-12] MEDS ORDERED: AMIODARONE HCL 900 MG in DEXTROSE 5%-WATER 500 ML IV SCH (09:45)
[2019-08-12 10:40] VITALS: BP 123/79
--- NOTE | 2019-08-12 11:29 | NUR ---
HEART DEFIBRATOR PATIENT HEART DEFIBRATOR FIRED [address] GAGE IN TO SEE PATIENT , DR NINO ORDERED AMIODARONE PROTOCOL, MEDICATION STARTED.
--- NOTE | 2019-08-12 12:05 | NUR ---
DR ELVIN OCONNOR ROUNDED ON PATIENT
[2019-08-12] MEDS: ALBUTEROL SULFATE 0.042% 1.25 MG/3 ML INH IH SCH ×2 (14:05→21:22)
[2019-08-12 15:44] VITALS: BP 101/63
[2019-08-12] MEDS: ACETAMINOPHEN 325 MG TAB PO PRN (18:14)
[2019-08-12 19:40] VITALS: BP 114/60
[2019-08-12] MEDS: ATORVASTATIN CALCIUM 40 MG TABLET PO SCH (21:48)
[2019-08-12] MEDS: CARVEDILOL 6.25 MG TABLET PO SCH (21:48)
[2019-08-12] MEDS: LEVOFLOXACIN 500 MG/D5W 100 ML 100 ML IV SCH (21:49)
[2019-08-12 23:26] VITALS: BP_SYST 102; BP_SYST 95; BP_DIAS 50; BP_DIAS 67
--- NOTE | 2019-08-13 03:08 | NUR ---
PATIENT RESTING IN BED. A/OX3. AUDIBLE WHEEZES. CURRENTLY USING 2L, NC. 02 SATS AT 98%. PATIENT ON A AMIO DRIP. HR A-FIB IN THE 80S. PATIENT HAS BLISTERS AND SCABS THROUGHOUT BODY FROM AN ALLERGY ACCORDING TO PATIENT. BLE SWELLING. TOLERATING ANTIBIOTICS WELL. CALL LIGHT WITHIN REACH.
[2019-08-13 03:22] VITALS: BP 109/51
[2019-08-13] MEDS: ZOSYN 3.375GM+NS 50ML 50 ML IV SCH ×3 (05:20→22:02)
[2019-08-13] MEDS: DIPHENHYDRAMINE HCL 25 MG CAPSULE PO PRN ×4 (06:01→22:02)
[2019-08-13] MEDS: ALBUTEROL SULFATE 0.042% 1.25 MG/3 ML INH IH SCH ×3 (06:26→22:19)
[2019-08-13 07:47] VITALS: BP 89/50
[2019-08-13 09:00] VITALS: BP 103/58
[2019-08-13] MEDS: CARVEDILOL 12.5 MG TABLET PO SCH (09:00)
[2019-08-13] MEDS: LOSARTAN 50 MG TABLET PO SCH (09:00)
[2019-08-13] MEDS: APIXABAN 5 MG TABLET PO SCH ×2 (09:24→20:19)
[2019-08-13] MEDS: FUROSEMIDE 20 MG TABLET PO SCH (09:24)
[2019-08-13] MEDS: PANTOPRAZOLE SODIUM 40 MG TABLET.DR PO SCH (09:24)
[2019-08-13] MEDS: SPIRONOLACTONE 25 MG TAB PO SCH (09:24)
[2019-08-13] MEDS: POTASSIUM CHLORIDE 20 MEQ ERTAB PO PRN ×2 (10:56→12:19)
[2019-08-13 11:13] VITALS: BP 125/63
[2019-08-13] MEDS: AMIODARONE HCL 200 MG TABLET PO SCH ×2 (12:19→20:19)
[2019-08-13 14:33] LABS: MAGNESIUM 1.8 mg/dL (1.80-2.40); POTASSIUM 4.4 mmol/L (3.5-5.1)
[2019-08-13 15:30] VITALS: BP 98/40
[2019-08-13] MEDS: MAGNESIUM 2GM PREMIX 50ML 50 ML IV SCH (16:26)
[2019-08-13 20:00] VITALS: BP 149/61
[2019-08-13] MEDS: LEVOFLOXACIN 500 MG/D5W 100 ML 100 ML IV SCH (20:18)
[2019-08-13] MEDS: CARVEDILOL 6.25 MG TABLET PO SCH (20:19)
[2019-08-13] MEDS: ATORVASTATIN CALCIUM 40 MG TABLET PO SCH (20:19)
[2019-08-13] MEDS: ACETAMINOPHEN 325 MG TAB PO PRN (20:31)
[2019-08-14] VITALS (7 sets, daily range): BP systolic 93–120; BP diastolic 51–71
[2019-08-14 04:50] LABS: CREATININE 1.2 mg/dL (0.5-1.5); MAGNESIUM 1.9 mg/dL (1.80-2.40); POTASSIUM 3.7 mmol/L (3.5-5.1)
[2019-08-14] MEDS: ZOSYN 3.375GM+NS 50ML 50 ML IV SCH (05:12)
[2019-08-14] MEDS: PANTOPRAZOLE SODIUM 40 MG TABLET.DR PO SCH (05:13)
[2019-08-14] MEDS: ALBUTEROL SULFATE 0.042% 1.25 MG/3 ML INH IH SCH ×3 (06:20→22:18)
[2019-08-14] MEDS: DIPHENHYDRAMINE HCL 25 MG CAPSULE PO PRN ×4 (06:44→22:35)
[2019-08-14] MEDS: ACETAMINOPHEN 325 MG TAB PO PRN ×3 (06:45→18:49)
[2019-08-14] MEDS: SPIRONOLACTONE 25 MG TAB PO SCH (09:10)
[2019-08-14] MEDS: CARVEDILOL 6.25 MG TABLET PO SCH ×2 (09:10→20:33)
[2019-08-14] MEDS: FUROSEMIDE 20 MG TABLET PO SCH (09:11)
[2019-08-14] MEDS: POTASSIUM CHLORIDE 20 MEQ ERTAB PO PRN (09:11)
[2019-08-14] MEDS: AMIODARONE HCL 200 MG TABLET PO SCH ×2 (09:11→20:33)
[2019-08-14] MEDS: APIXABAN 5 MG TABLET PO SCH ×2 (09:11→20:34)
[2019-08-14] MEDS ORDERED: AMIO200T5 PO (09:12)
--- NOTE | 2019-08-14 14:15 | NUR ---
antibiotic discontinued ZOSYN DISCONTINUED AT THIS TIME
[2019-08-14] MEDS: LEVOFLOXACIN 500 MG/D5W 100 ML 100 ML IV SCH (20:32)
[2019-08-14] MEDS: ATORVASTATIN CALCIUM 40 MG TABLET PO SCH (20:34)
[2019-08-14] MEDS ORDERED: LOSARTAN 50 MG TABLET PO SCH (21:00)
[2019-08-15 03:56] VITALS: BP 97/51
[2019-08-15] MEDS: PANTOPRAZOLE SODIUM 40 MG TABLET.DR PO SCH ×2 (05:34→08:34)
[2019-08-15 05:38] LABS: BASOPHILS % (AUTO) 0.2 % (0.0-5.0); EOSINOPHILS % (AUTO) 10.7 % (0.0-8.0); HEMATOCRIT 29.6 % (42-54); LYMPHOCYTES % (AUTO) 10.3 % (21.0-51.0); MEAN CORPUSCULAR HGB CONC 32.4 g/dL (32.0-36.0); MEAN CORPUSCULAR VOLUME 92.5 fL (79-99); MONOCYTES % (AUTO) 6.3 % (3.0-13.0); NEUTROPHILS % (AUTO) 70.8 % (40.0-77.0); PLATELET COUNT (AUTO) 236 K/uL (130-400); RED CELL DISTRIBUTION WIDTH 13.5 % (11.0-15.5); WHITE BLOOD COUNT (AUTO) 9.2 K/uL (4.8-10.8)
[2019-08-15 06:07] LABS: ALBUMIN 1.9 g/dL (3.5-5.0); BILIRUBIN,TOTAL 0.4 mg/dL (0.2-1.0); POTASSIUM 3.9 mmol/L (3.5-5.1); TOTAL PROTEIN, SERUM 5.8 g/dL (6.0-8.3)
[2019-08-15] MEDS: ALBUTEROL SULFATE 0.042% 1.25 MG/3 ML INH IH SCH (06:28)
[2019-08-15 07:00] VITALS: BP 105/59
[2019-08-15] MEDS: FUROSEMIDE 20 MG TABLET PO SCH (08:33)
[2019-08-15] MEDS: APIXABAN 5 MG TABLET PO SCH (08:33)
[2019-08-15] MEDS: SPIRONOLACTONE 25 MG TAB PO SCH (08:33)
[2019-08-15] MEDS: AMIODARONE HCL 200 MG TABLET PO SCH (08:33)
[2019-08-15] MEDS: CARVEDILOL 6.25 MG TABLET PO SCH (08:34)
[2019-08-15 11:00] VITALS: BP 105/63
--- NOTE | 2019-08-15 13:16 | NUR ---
DISCHARGE INSTRUCTIONS GIVEN TO PATIENT, MADE AWARE OF ALL MEDICATION CHANGES WELL NEW PRESCRIPTIONS. MADE AWARE OF APPOINTMENT WITH DR. LEMUS AND DR. MARIE, STRESSED IMPORTANCE OF KEEPING FOLLOWING APPOINTMENTS. PRINTED RX GIVEN TO PATIENT. AT THIS TIME PATIENT DENIES SHORTNESS OF BREATH OR CHEST PAIN. SATURATING 97% ON ROOM AIR. IVS AND TELE PACK REMOVED. PATIENT AWAITING HIS FRIEND TO PICK HIM UP.
== END 2019-08-15 13:45 | disposition home or self-care (01) | DRG 291 ==
LOC: EDH 20:20 → EDHIP 21:40 → 4AH 22:09
PROVIDERS: ADMIT Family Medicine; ATTEND Family Medicine
PROC: 4B02XTZ Measurement of Cardiac Defibrillator, External Approach (ICD-10-PCS; principal; 2019-08-10)
DX: I11.0 Hypertensive heart disease with heart failure (principal); I49.01 Ventricular fibrillation; I47.2 Ventricular tachycardia; J44.1 Chronic obstructive pulmonary disease with (acute) exacerbation; I48.20 Chronic atrial fibrillation, unspecified; I45.2 Bifascicular block; I50.23 Acute on chronic systolic (congestive) heart failure; E83.42 Hypomagnesemia; E87.6 Hypokalemia; I25.10 Atherosclerotic heart disease of native coronary artery without angina pectoris; I25.5 Ischemic cardiomyopathy; Z60.2 Problems related to living alone; N40.0 Benign prostatic hyperplasia without lower urinary tract symptoms; I73.9 Peripheral vascular disease, unspecified; E78.5 Hyperlipidemia, unspecified; Z95.1 Presence of aortocoronary bypass graft; I25.2 Old myocardial infarction; Z95.810 Presence of automatic (implantable) cardiac defibrillator; Z87.891 Personal history of nicotine dependence; Z79.899 Other long term (current) drug therapy; Z79.82 Long term (current) use of aspirin; Z79.02 Long term (current) use of antithrombotics/antiplatelets
CPT/HCPCS: 36415; 71045; 80048; 80053; 81001; 82150; 82550; 83605; 83690; 83735; 83874; 83880; 84132; 84484; 85025; 85027; 85610; 85730; 87040; 87077; 87186; 87804; 93005; 93306; 93356; 93971; 94640; 94664; 99291; C9113; G0378; J0282; J1200; J1940; J1956; J2543; J3475; J7030; J7060; Q0163

== ENCOUNTER 2019-09-05 16:59 | Inpatient (IN) | payer OTHER ==
[~2019-09-05] VITALS: Ht 185.4 cm; Wt 107.2 kg
[~2019-09-05 16:59] MED LIST changes: +AMIO200T6 PO; +AMLO-258 PO; -AMLO10TA7 PO; -ASPI-555 PO; +ASPI-556 PO
[2019-09-05 17:44] LABS: BASOPHILS % (AUTO) 0.2 % (0.0-5.0); EOSINOPHILS % (AUTO) 0.1 % (0.0-8.0); HEMATOCRIT 33.4 % (42-54); LYMPHOCYTES % (AUTO) 5.9 % (21.0-51.0); MEAN CORPUSCULAR HEMOGLOBIN 29.5 pg (27.0-33.0); MEAN CORPUSCULAR HGB CONC 32.9 g/dL (32.0-36.0); MEAN CORPUSCULAR VOLUME 89.5 fL (79-99); MONOCYTES % (AUTO) 7.7 % (3.0-13.0); NEUTROPHILS % (AUTO) 85.2 % (40.0-77.0); PLATELET COUNT (AUTO) 257 K/uL (130-400); RED BLOOD CELL COUNT(AUTO) 3.73 MIL/uL (4.50-6.20); WHITE BLOOD COUNT (AUTO) 18.2 K/uL (4.8-10.8)
[2019-09-05 17:56] LABS: CREATININE 1.4 mg/dL (0.5-1.5); POTASSIUM 5.1 mmol/L (3.5-5.1)
[2019-09-05 18:02] LABS: INR 1.12 (0.85-1.15)
[2019-09-05 18:52] LABS: ALBUMIN 2.4 g/dL (3.5-5.0); BILIRUBIN,TOTAL 1.5 mg/dL (0.2-1.0); TOTAL PROTEIN, SERUM 7.4 g/dL (6.0-8.3)
[2019-09-05] MEDS ORDERED: IOHEXOL-350 75 ML VIAL IV ONE (20:07)
[2019-09-05] MEDS ORDERED: IOHEXOL-350 50ML VIAL IV ONE (20:07)
[2019-09-05] MEDS ORDERED: NITROGLYCERIN 2 MG/VIAL VIAL IV ONE (20:08)
[2019-09-05] MEDS ORDERED: LIDOCAINE HCL 2% 20ML ONE ×2 (20:08→23:31)
[2019-09-05] MEDS ORDERED: HEPARIN SODIUM 1000UNIT/ML 10ML VIAL ONE (20:08)
[2019-09-05] MEDS ORDERED: IODIXANOL 320 MG/ML 100 ML VIAL ONE ×2 (20:08→23:08)
[2019-09-05] MEDS ORDERED: HEPARIN SODIUM 5000UNIT/ML 1ML VIAL ONE (20:38)
[2019-09-05] MEDS ORDERED: HEPARIN 25000 UNITS/250 ML D5W 0 ML IV ONE (20:39)
[2019-09-05] MEDS ORDERED: PHARMACY COMMUNICATION MISC SCH (21:30)
[2019-09-05] MEDS ORDERED: STERILE WATER IV SCH ×2 (21:45→22:00)
[2019-09-05] MEDS ORDERED: ALTEPLASE IV SCH ×2 (21:45→22:00)
[2019-09-05] MEDS ORDERED: HEPARIN 25000 UNITS/250 ML D5W 250 ML IV ONE (22:59)
[2019-09-05] MEDS ORDERED: CEFAZOLIN SODIUM 1 GM VIAL ONE (23:37)
[2019-09-06] VITALS (65 sets, daily range): BP systolic 58–142; BP diastolic 26–104
[2019-09-06] MEDS ORDERED: ACETAMINOPHEN 325 MG TAB PO PRN (00:15)
[2019-09-06] MEDS ORDERED: ONDANSETRON HCL 4 MG/2 ML VIAL IVP PRN (00:15)
[2019-09-06] MEDS ORDERED: MORPHINE SULFATE 2 MG/ML 1ML SYG IVP PRN (00:15)
[2019-09-06] MEDS ORDERED: ALTEPLASE 2 MG/VIAL IVCATH SCH (00:48)
[2019-09-06 02:24] LABS: BASOPHILS % (AUTO) 0.1 % (0.0-5.0); HEMATOCRIT 29.3 % (42-54); LYMPHOCYTES % (AUTO) 5.3 % (21.0-51.0); MEAN CORPUSCULAR HEMOGLOBIN 29.6 pg (27.0-33.0); MEAN CORPUSCULAR HGB CONC 32.8 g/dL (32.0-36.0); MEAN CORPUSCULAR VOLUME 90.4 fL (79-99); MONOCYTES % (AUTO) 6.3 % (3.0-13.0); NEUTROPHILS % (AUTO) 87.5 % (40.0-77.0); PLATELET COUNT (AUTO) 235 K/uL (130-400); RED BLOOD CELL COUNT(AUTO) 3.24 MIL/uL (4.50-6.20); RED CELL DISTRIBUTION WIDTH 14.9 % (11.0-15.5); WHITE BLOOD COUNT (AUTO) 18.3 K/uL (4.8-10.8)
[2019-09-06 02:39] LABS: INR 1.17 (0.85-1.15); PARTIAL THROMBOPLASTIN TIME 49.8 SEC (26.3-35.5); PROTHROMBIN TIME 12.6 SEC (9.6-11.6)
[2019-09-06 02:46] LABS: BASOPHILS % (AUTO) 0.1 % (0.0-5.0); EOSINOPHILS % (AUTO) 0.1 % (0.0-8.0); HEMATOCRIT 29.8 % (42-54); LYMPHOCYTES % (AUTO) 5.7 % (21.0-51.0); MEAN CORPUSCULAR HEMOGLOBIN 29.6 pg (27.0-33.0); MEAN CORPUSCULAR HGB CONC 32.6 g/dL (32.0-36.0); MEAN CORPUSCULAR VOLUME 90.9 fL (79-99); MONOCYTES % (AUTO) 6.1 % (3.0-13.0); NEUTROPHILS % (AUTO) 87.1 % (40.0-77.0); PLATELET COUNT (AUTO) 249 K/uL (130-400); RED BLOOD CELL COUNT(AUTO) 3.28 MIL/uL (4.50-6.20); RED CELL DISTRIBUTION WIDTH 14.9 % (11.0-15.5); WHITE BLOOD COUNT (AUTO) 17.9 K/uL (4.8-10.8)
[2019-09-06] MEDS ORDERED: SODIUM CHLORIDE 0.9% 100 ML IV ONE (04:29)
[2019-09-06] MEDS ORDERED: CEFAZOLIN SODIUM 1 GM VIAL IVP SCH (06:00)
[2019-09-06] MEDS ORDERED: CARV6.25 PO (06:03)
[2019-09-06] MEDS ORDERED: FURO20TA6 PO (06:03)
[2019-09-06] MEDS ORDERED: DEXA1TAB PO (06:03)
[2019-09-06] MEDS ORDERED: SPIR25TA6 PO (06:03)
[2019-09-06] MEDS ORDERED: POTA20TA12 PO (06:03)
[2019-09-06] MEDS ORDERED: DOPAMINE HCL 400 MG/D5%-WATER 250 ML IV PRN (08:00)
[2019-09-06] MEDS ORDERED: DOBUTAMINE 250MG/D5 250ML 250 ML IV SCH (08:00)
[2019-09-06 08:08] LABS: ABG BASE EXCESS -9.5 mmol/L (-2.0-3.0); ABG HCO3 16.5 mmol/L (21.0-28.0); ABG OXYGEN SATURATION 97.8 % (95.0-99.0); ABG PCO2 36 mmHg (35-48)
[2019-09-06] MEDS ORDERED: NOREPINEPHRINE 4MG/NS 250ML 250 ML IV SCH (08:15)
[2019-09-06 08:17] LABS: BASOPHILS % (AUTO) 0.1 % (0.0-5.0); EOSINOPHILS % (AUTO) 0.5 % (0.0-8.0); HEMATOCRIT 28.9 % (42-54); LYMPHOCYTES % (AUTO) 6.9 % (21.0-51.0); MEAN CORPUSCULAR HEMOGLOBIN 29.7 pg (27.0-33.0); MEAN CORPUSCULAR HGB CONC 32.2 g/dL (32.0-36.0); MEAN CORPUSCULAR VOLUME 92.3 fL (79-99); MONOCYTES % (AUTO) 8.8 % (3.0-13.0); NEUTROPHILS % (AUTO) 81.8 % (40.0-77.0); NUCLEATED RED BLOOD CELLS 0.1 % (0.0-0.19); PLATELET COUNT (AUTO) 233 K/uL (130-400); RED BLOOD CELL COUNT(AUTO) 3.13 MIL/uL (4.50-6.20); WHITE BLOOD COUNT (AUTO) 20.5 K/uL (4.8-10.8)
[2019-09-06] MEDS ORDERED: SODIUM BICARB 50MEQ 50ML VIAL ONE (08:18)
[2019-09-06 08:31] LABS: CREATININE 2.3 mg/dL (0.5-1.5); POTASSIUM 5.5 mmol/L (3.5-5.1)
[2019-09-06 08:34] LABS: MAGNESIUM 2.3 mg/dL (1.80-2.40)
[2019-09-06 08:43] LABS: INR 1.2 (0.85-1.15); PARTIAL THROMBOPLASTIN TIME 43.8 SEC (26.3-35.5); PROTHROMBIN TIME 12.9 SEC (9.6-11.6)
[2019-09-06] MEDS ORDERED: SODIUM BICARB 8.4% 50ML SYRINGE IVP SCH (08:45)
[2019-09-06] MEDS: PANTOPRAZOLE 40 MG/VIAL IVP SCH (09:00)
[2019-09-06] MEDS: AMIODARONE HCL 200 MG TABLET PO SCH ×2 (09:00→21:43)
[2019-09-06] MEDS ORDERED: SODIUM BICARB 50MEQ 50ML VIAL IV SCH (09:15)
[2019-09-06 10:03] LABS: ABG BASE EXCESS -0.7 mmol/L (-2.0-3.0); ABG HCO3 23.8 mmol/L (21.0-28.0); ABG PCO2 39 mmHg (35-48)
[2019-09-06] MEDS ORDERED: ALTEPLASE IV SCH (11:00)
[2019-09-06] MEDS ORDERED: STERILE WATER IV SCH (11:00)
[2019-09-06] MEDS: SODIUM BICARB 8.4% 50ML SYRING 150 MEQ in DEXTROSE 5%-WATER 1,000 ML IV SCH ×2 (11:06→20:26)
[2019-09-06] MEDS ORDERED: ZYVOX 600 MG TAB PO SCH (11:30)
[2019-09-06 11:39] LABS: BASOPHILS % (AUTO) 0.2 % (0.0-5.0); EOSINOPHILS % (AUTO) 0.9 % (0.0-8.0); HEMATOCRIT 27.3 % (42-54); LYMPHOCYTES % (AUTO) 8.1 % (21.0-51.0); MEAN CORPUSCULAR HEMOGLOBIN 29.7 pg (27.0-33.0); MEAN CORPUSCULAR HGB CONC 32.6 g/dL (32.0-36.0); MONOCYTES % (AUTO) 7.6 % (3.0-13.0); NEUTROPHILS % (AUTO) 80.9 % (40.0-77.0); NUCLEATED RED BLOOD CELLS 0.3 % (0.0-0.19); PLATELET COUNT (AUTO) 196 K/uL (130-400); RED CELL DISTRIBUTION WIDTH 14.9 % (11.0-15.5); WHITE BLOOD COUNT (AUTO) 15.5 K/uL (4.8-10.8)
[2019-09-06] MEDS ORDERED: CALCIUM GLUCONATE 2 GM in SODIUM CHLORIDE 0.9% 100 ML IV SCH (11:45)
[2019-09-06] MEDS ORDERED: INSULIN HUMULIN R 100 UNIT/ML 3ML IV SCH (11:45)
[2019-09-06] MEDS ORDERED: DEXTROSE 50%-WATER 25 GM/50 ML VIAL IV SCH (11:45)
[2019-09-06] MEDS ORDERED: SODIUM CHLORIDE 0.9% 500ML 500 ML IV ONE ×2 (11:46→12:32)
[2019-09-06 11:52] LABS: INR 1.38 (0.85-1.15); PARTIAL THROMBOPLASTIN TIME 33.1 SEC (26.3-35.5); PROTHROMBIN TIME 14.7 SEC (9.6-11.6)
[2019-09-06 11:54] LABS: CREATININE 2.5 mg/dL (0.5-1.5); POTASSIUM 5.3 mmol/L (3.5-5.1)
[2019-09-06 12:20] LABS: MAGNESIUM 2.2 mg/dL (1.80-2.40)
[2019-09-06] MEDS: HYDROCORTISONE SOD SUCCINATE 100 MG/2 ML VIAL IV SCH ×3 (12:22→23:33)
[2019-09-06] MEDS ORDERED: SODIUM CHLORIDE 0.9% 500ML 500 ML IV SCH (12:30)
[2019-09-06] MEDS: LINEZOLID 600 MG/ISO-OSM 300 ML IV SCH (13:00)
[2019-09-06] MEDS: ZOSYN 3.375GM+NS 50ML 50 ML IV SCH ×2 (13:00→23:56)
[2019-09-06] MEDS ORDERED: ZOSYN 3.375GM+NS 50ML 50 ML IV SCH (13:00)
[2019-09-06] MEDS ORDERED: CALCIUM GLUCONATE 1 GM/10 ML VIAL IV ONE (13:11)
--- NOTE | 2019-09-06 14:47 | NUR ---
CONSENT Pt able to sign consent for planned procedure;however, pt struggled to complete initialing of consent in indicated areas secondary to supine position and presence of Bipap mask. Information was discussed with pt who verbalized understanding and asked that his "consent" be indicated where necessary by initials of this RN and pt's primary nurse.
[2019-09-06] MEDS ORDERED: HEPARIN SODIUM 1000UNIT/ML 10ML VIAL ONE (15:06)
[2019-09-06] MEDS ORDERED: IODIXANOL 320 MG/ML 100 ML VIAL ONE (15:06)
[2019-09-06] MEDS ORDERED: LIDOCAINE HCL 2% 20ML ONE (15:06)
--- NOTE | 2019-09-06 15:23 | NUR ---
PATIENT WAS TAKEN BY SQUIRREL MAN STAFF FOR CATHLAB PROCEDURE BY DR. SEALS.
[2019-09-06] MEDS ORDERED: HEPARIN 25000 UNITS/250 ML D5W 250 ML IV SCH (17:30)
[2019-09-06 17:49] LABS: HEMATOCRIT 25.2 % (42-54); MEAN CORPUSCULAR HEMOGLOBIN 29.9 pg (27.0-33.0); MEAN CORPUSCULAR HGB CONC 32.9 g/dL (32.0-36.0); MEAN CORPUSCULAR VOLUME 90.6 fL (79-99); NUCLEATED RED BLOOD CELLS 0.1 % (0.0-0.19); PLATELET COUNT (AUTO) 169 K/uL (130-400); RED BLOOD CELL COUNT(AUTO) 2.78 MIL/uL (4.50-6.20); WHITE BLOOD COUNT (AUTO) 14.8 K/uL (4.8-10.8)
[2019-09-06 18:00] LABS: INR 1.33 (0.85-1.15); PARTIAL THROMBOPLASTIN TIME 27.2 SEC (26.3-35.5); PROTHROMBIN TIME 14.2 SEC (9.6-11.6)
--- NOTE | 2019-09-06 18:26 | NUR ---
CM NOTE PATIENT WELL KNOWN TO THIS CM FROM LAST ADMIT- INSERTING NOTES FROM LAST ADMIT HERE: "" STATES INDEPENDENT, LIVES ALONE, DRIVES, USES ROLLING WALKER AND CANE, HOME SAFE AND ACCESSIBLE WITH SHOWER CHAIR- NO PROVIDER SERVICES, 'GETTING HARDER TO DO FOR MYSELF' WILL REFER TO SUNNY SALAS AT [facility] ON [address]. PT HERE FOR AICD FIRING, VERY UNCOMFORTABLE. DC PLAN IS HOME, [facility] ON FACE SHEET TO PROVIDE TRANSPORT" WILL FORWARD TO CM TO VERIFY IF INFORMATION REMAINS THE SAME. PATIENT AT PROCEDURE WHEN CM CAME TO TO [place] Addendum: 09/06/19 at 1828 by OCTAVIO RM RN CM Amended: Links added.
[2019-09-06 19:46] LABS: BAND NEUTROPHILS % (MANUAL) 25 % (0-2); LYMPHOCYTES % (MANUAL) 10 % (22-44); MONOCYTES % (MANUAL) 6 % (2-9); REACTIVE LYMPHOCYTES 1 % (0-0); SEGMENTED NEUTROPHILS % 58 % (40-70)
[2019-09-06 19:47] LABS: CREATININE 2.5 mg/dL (0.5-1.5); MAN.DIFF COMMENT-IMPRESSION MANUAL DIFFERENTIAL; POTASSIUM 4.3 mmol/L (3.5-5.1)
[2019-09-06 19:48] LABS: PLATELET MORPHOLOGY COMMENT LARGE PLTS PRESENT
--- NOTE | 2019-09-06 22:05 | NUR ---
STATUS PT CHANGED DUE TO BM AT THIS TIME UPON TURNING BACK BLEEDING NOTED TO RIGHT LOWER FEMORAL SITE AND HEMATOMA FELT TO UPPER RIGHT FEMORAL/LOWER ABDOMINAL SITE. DRESSING REMOVED AND PRESSURE HELD. DR SEALS CALLED AND NEW ORDERS RECEIVED TO HOLD MANUAL PRESSURE AND TRANSFUSE 1 UNIT PRBC. WILL CONTINUE TO MONITOR. Addendum: 09/07/19 at 0113 by APRIL CASEY RN RN HEPARIN WAS STOPPED IMMEDIATELY AT TIME BLEEDING WAS DISCOVERED.
[2019-09-06 22:27] LABS: BASOPHILS % (AUTO) 0.1 % (0.0-5.0); HEMATOCRIT 24.7 % (42-54); LYMPHOCYTES % (AUTO) 8.5 % (21.0-51.0); MEAN CORPUSCULAR HEMOGLOBIN 29.3 pg (27.0-33.0); MEAN CORPUSCULAR HGB CONC 32.8 g/dL (32.0-36.0); MEAN CORPUSCULAR VOLUME 89.5 fL (79-99); MONOCYTES % (AUTO) 7.7 % (3.0-13.0); NEUTROPHILS % (AUTO) 82.6 % (40.0-77.0); NUCLEATED RED BLOOD CELLS 0.3 % (0.0-0.19); PLATELET COUNT (AUTO) 163 K/uL (130-400); RED BLOOD CELL COUNT(AUTO) 2.76 MIL/uL (4.50-6.20); RED CELL DISTRIBUTION WIDTH 14.8 % (11.0-15.5); WHITE BLOOD COUNT (AUTO) 15.2 K/uL (4.8-10.8)
--- NOTE | 2019-09-06 22:35 | NUR ---
STATUS PRESSURE HELD APPROXIMATELY FOR 25-30 MIN AND D STATS WERE PLACED. SITES FELT SOFT TO TOUCH NO BLEEDING NOTED PRESSURE DRESSING APPLIED. WILL CONTINUE TO MONITOR.
[2019-09-06 22:37] LABS: INR 1.26 (0.85-1.15); PARTIAL THROMBOPLASTIN TIME 29.6 SEC (26.3-35.5); PROTHROMBIN TIME 13.5 SEC (9.6-11.6)
[2019-09-07] VITALS (34 sets, daily range): BP systolic 90–137; BP diastolic 45–76
[2019-09-07] MEDS: LINEZOLID 600 MG/ISO-OSM 300 ML IV SCH ×3 (01:10→23:31)
[2019-09-07] MEDS: SODIUM BICARB 8.4% 50ML SYRING 150 MEQ in DEXTROSE 5%-WATER 1,000 ML IV SCH (04:37)
[2019-09-07 04:48] LABS: BASOPHILS % (AUTO) 0.1 % (0.0-5.0); HEMATOCRIT 26.4 % (42-54); LYMPHOCYTES % (AUTO) 9.1 % (21.0-51.0); MEAN CORPUSCULAR HEMOGLOBIN 29.8 pg (27.0-33.0); MEAN CORPUSCULAR HGB CONC 33.7 g/dL (32.0-36.0); MEAN CORPUSCULAR VOLUME 88.3 fL (79-99); MONOCYTES % (AUTO) 6.2 % (3.0-13.0); NEUTROPHILS % (AUTO) 83.6 % (40.0-77.0); NUCLEATED RED BLOOD CELLS 0.5 % (0.0-0.19); PLATELET COUNT (AUTO) 153 K/uL (130-400); RED BLOOD CELL COUNT(AUTO) 2.99 MIL/uL (4.50-6.20); RED CELL DISTRIBUTION WIDTH 14.6 % (11.0-15.5); WHITE BLOOD COUNT (AUTO) 13.7 K/uL (4.8-10.8)
[2019-09-07 05:00] LABS: INR 1.17 (0.85-1.15); PARTIAL THROMBOPLASTIN TIME 26.2 SEC (26.3-35.5); PROTHROMBIN TIME 12.6 SEC (9.6-11.6)
[2019-09-07 05:09] LABS: CREATININE 2.4 mg/dL (0.5-1.5); MAGNESIUM 2.1 mg/dL (1.80-2.40); POTASSIUM 4.3 mmol/L (3.5-5.1)
[2019-09-07] MEDS: HYDROCORTISONE SOD SUCCINATE 100 MG/2 ML VIAL IV SCH ×4 (05:52→23:24)
[2019-09-07] MEDS: PANTOPRAZOLE 40 MG/VIAL IVP SCH (08:18)
[2019-09-07] MEDS: AMIODARONE HCL 200 MG TABLET PO SCH ×2 (08:18→21:19)
[2019-09-07] MEDS ORDERED: ONDANSETRON HCL 4 MG/2 ML VIAL ONE (09:03)
[2019-09-07] MEDS ORDERED: LIDOCAINE PF 2% 5ML ABBOJECT ONE (09:03)
[2019-09-07] MEDS ORDERED: DEXAMETHASONE SOD PHOSPHATE 10MG/ML 1ML VIAL ONE (09:03)
[2019-09-07] MEDS ORDERED: MIDAZOLAM HCL 1 MG/ML 2ML VIAL ONE (09:03)
[2019-09-07] MEDS ORDERED: PROPOFOL 10 MG/ML 20ML VIAL IV ONE (09:04)
[2019-09-07] MEDS ORDERED: GLYCOPYRROLATE 1 MG/5 ML SYRINGE ONE (09:04)
[2019-09-07] MEDS ORDERED: NEOSTIGMINE 5MG/5ML SYR IV ONE (09:05)
[2019-09-07] MEDS ORDERED: FENTANYL CITRATE PF 50 MCG/1 ML 2ML VIAL ONE ×2 (09:05→12:43)
[2019-09-07] MEDS ORDERED: ROCURONIUM 10MG/1ML SYR 10 MG/ML ML ONE (09:05)
[2019-09-07] MEDS ORDERED: KETAMINE 50MG/ML SYRINGE 50 MG/ML DISP.SYRIN IV ONE (09:07)
[2019-09-07] MEDS ORDERED: SODIUM CHLORIDE 0.9% 250 ML IV ONE ×2 (09:18→21:44)
[2019-09-07] MEDS ORDERED: ALBUMIN (HUMAN) 5% 500 ML IV ONE (10:43)
--- NOTE | 2019-09-07 11:00 | NUR ---
PT WAS TAKEN TO SURGERY FOR RIGHT AKA AND DAUGHTER WHEN WITH OR STAFF AND WILL WAIT FOR SURGEON IN THE FRONT LOBBY. PT HAD RECEIVED 1 UNIT OF BLOOD PRIOR TO GOING TO SURGERY.
[2019-09-07 12:11] LABS: ABG BASE EXCESS 9.6 mmol/L (-2.0-3.0); ABG HCO3 35.3 mmol/L (21.0-28.0); ABG OXYGEN SATURATION 99.1 % (95.0-99.0); ABG PCO2 55 mmHg (35-48)
[2019-09-07] MEDS ORDERED: PHENYLEPHRINE HCL 10 MG/ML 1ML VIAL IV ONE ×3 (12:27→12:28)
--- NOTE | 2019-09-07 13:10 | NUR ---
PT WAS RECEIVED FROM OR AFTER RIGHT AKA AND WAS ACCOMPANIED BY CHRIS RIVERA CRNA AND OR STAFF. PT HAD NON REBREATHER MASK AND WAS PLACED ON BIPAP TEMPORARY UNTIL PATIENT WAKES UP BETTER. DAUGHTER IN ROOM AND HAS BEEN GIVEN A PLAN OF TREATMENT.
[2019-09-07] MEDS: ZOSYN 3.375GM+NS 50ML 50 ML IV SCH (13:11)
[2019-09-07 15:00] LABS: BASOPHILS % (AUTO) 0.2 % (0.0-5.0); EOSINOPHILS % (AUTO) 0.7 % (0.0-8.0); HEMATOCRIT 25.1 % (42-54); LYMPHOCYTES % (AUTO) 4.8 % (21.0-51.0); MEAN CORPUSCULAR HEMOGLOBIN 29.8 pg (27.0-33.0); MEAN CORPUSCULAR HGB CONC 34.3 g/dL (32.0-36.0); MEAN CORPUSCULAR VOLUME 86.9 fL (79-99); MONOCYTES % (AUTO) 4.6 % (3.0-13.0); NEUTROPHILS % (AUTO) 88.5 % (40.0-77.0); NUCLEATED RED BLOOD CELLS 0.7 % (0.0-0.19); PLATELET COUNT (AUTO) 139 K/uL (130-400); RED BLOOD CELL COUNT(AUTO) 2.89 MIL/uL (4.50-6.20); RED CELL DISTRIBUTION WIDTH 14.9 % (11.0-15.5); WHITE BLOOD COUNT (AUTO) 12.2 K/uL (4.8-10.8)
--- NOTE | 2019-09-07 17:30 | NUR ---
PT WAS TAKEN OFF BIPAP AND WANTED SOMETHING FOR PAIN AND TO BE TURNED ON HIS SIDE. PT APPEARS TO BE VERY COMFORTABLE. AT PRESENT.
[2019-09-07] MEDS: MORPHINE SULFATE 2 MG/ML 1ML SYG IVP PRN ×2 (17:39→23:29)
--- NOTE | 2019-09-07 17:45 | NUR ---
DR. FRAZIER CALLED FOR UPDATE ON PATIENT AND WAS ADVISED OF PRESENT STATUS. ALSO WAS ADVISED OF DR. GAGE WANTING TO KNOW WHEN THE BLOOD THINNERS COULD BE STARTED AND ORDER NOTED.
[2019-09-07] MEDS ORDERED: SODIUM CHLORIDE 0.9% 1000ML 1,000 ML IV SCH (18:30)
[2019-09-07] MEDS: TRAMADOL HCL 50 MG TABLET PO PRN (21:19)
[2019-09-08] VITALS (22 sets, daily range): BP systolic 96–121; BP diastolic 49–80
[2019-09-08] MEDS: ZOSYN 3.375GM+NS 50ML 50 ML IV SCH ×2 (00:47→12:59)
[2019-09-08 04:47] LABS: BASOPHILS % (AUTO) 0.2 % (0.0-5.0); HEMATOCRIT 24.5 % (42-54); LYMPHOCYTES % (AUTO) 4.7 % (21.0-51.0); MEAN CORPUSCULAR HEMOGLOBIN 29.7 pg (27.0-33.0); MEAN CORPUSCULAR HGB CONC 33.5 g/dL (32.0-36.0); MEAN CORPUSCULAR VOLUME 88.8 fL (79-99); MONOCYTES % (AUTO) 6.3 % (3.0-13.0); NEUTROPHILS % (AUTO) 87.6 % (40.0-77.0); NUCLEATED RED BLOOD CELLS 0.5 % (0.0-0.19); PLATELET COUNT (AUTO) 102 K/uL (130-400); RED BLOOD CELL COUNT(AUTO) 2.76 MIL/uL (4.50-6.20); RED CELL DISTRIBUTION WIDTH 14.9 % (11.0-15.5); WHITE BLOOD COUNT (AUTO) 11.6 K/uL (4.8-10.8)
[2019-09-08 05:06] LABS: ALBUMIN 1.8 g/dL (3.5-5.0); CREATININE 1.5 mg/dL (0.5-1.5); MAGNESIUM 2.2 mg/dL (1.80-2.40); POTASSIUM 3.2 mmol/L (3.5-5.1); TOTAL PROTEIN, SERUM 5.2 g/dL (6.0-8.3)
[2019-09-08] MEDS: TRAMADOL HCL 50 MG TABLET PO PRN ×2 (05:11→17:43)
[2019-09-08] MEDS: HYDROCORTISONE SOD SUCCINATE 100 MG/2 ML VIAL IV SCH ×3 (05:12→17:42)
[2019-09-08 05:50] LABS: B-TYPE NATRIURETIC PEPTIDE 349 pg/mL (0-100)
[2019-09-08] MEDS ORDERED: LIDOCAINE HCL-MPF 1% 2ML VIAL IV PRN (08:00)
[2019-09-08] MEDS ORDERED: POTASSIUM CHLORIDE 20MEQ/100ML 100 ML IV PRN (08:00)
[2019-09-08] MEDS: AMIODARONE HCL 200 MG TABLET PO SCH ×2 (08:57→21:03)
[2019-09-08] MEDS: POTASSIUM CHLORIDE 20 MEQ ERTAB PO PRN ×4 (08:57→17:44)
[2019-09-08] MEDS: PANTOPRAZOLE 40 MG/VIAL IVP SCH (08:58)
[2019-09-08] MEDS: LINEZOLID 600 MG/ISO-OSM 300 ML IV SCH (12:59)
--- NOTE | 2019-09-08 15:10 | NUR ---
DC PLAN RECEIVED ORDER TO IRU. SPOKE TO PATIENT SAID OKAY TO GO ANYWHERE BUT [facility]. LET HIM KNOW THAT THERAPY RECOMMENDING IRU SAID OKAY TO [facility]. SPOKE TO NURSE SAID PATIENT HAS ORDERS TO DOWN GRADE TO PCCU. RESPIRATIONS HIGH. ONLY DID ROM IN BED TODAY DUE TO PAIN S/P KA ON 09/06. PACKET STARTED CM WILL SENT TO IRU. Addendum: 09/08/19 at 1514 by SUNI PACKER RN CM Amended: Links added.
[2019-09-08] MEDS: APIXABAN 5 MG TABLET PO SCH (21:03)
[2019-09-09] VITALS (40 sets, daily range): BP systolic 40–140; BP diastolic 26–95
[2019-09-09] MEDS: LINEZOLID 600 MG/ISO-OSM 300 ML IV SCH ×2 (01:38→12:18)
[2019-09-09] MEDS: HYDROCORTISONE SOD SUCCINATE 100 MG/2 ML VIAL IV SCH ×4 (01:38→17:22)
[2019-09-09] MEDS: ZOSYN 3.375GM+NS 50ML 50 ML IV SCH ×2 (01:38→12:18)
--- NOTE | 2019-09-09 02:27 | NUR ---
UPDATE 227 PT HEART RHYTHM VTACH FOR APPROXIMATELY 3 MIN PT INITIALLY ALERT BUT LOSE CONSCIOUS CPT INITIATE APPROXIMATELY 30SEC WITH PT REGAIN CONSCIOUSNESS. NOTED DEFIBRILLATOR NOT RESPONDING TO EVENT. DR CAGLE MADE AWARE OF EVENT, PT CONDITIONS CURRENT MEDS AND LAB RESULTS. NEW ORDERS RECIEVED AND CARRIED OUT. PT IN NO DISTRESS POST EVENT WILL CONTINUE TO MONITOR.
[2019-09-09] MEDS: POTASSIUM CHLORIDE 10% ELIXIR 20 MEQ/15 ML UDCUP PO PRN ×3 (03:03→08:03)
[2019-09-09 03:14] LABS: HEMATOCRIT 25.3 % (42-54); MEAN CORPUSCULAR HEMOGLOBIN 30.2 pg (27.0-33.0); MEAN CORPUSCULAR HGB CONC 32.8 g/dL (32.0-36.0); NUCLEATED RED BLOOD CELLS 0.7 % (0.0-0.19); RED BLOOD CELL COUNT(AUTO) 2.75 MIL/uL (4.50-6.20); WHITE BLOOD COUNT (AUTO) 12.1 K/uL (4.8-10.8)
[2019-09-09 03:31] LABS: ALBUMIN 1.5 g/dL (3.5-5.0); BILIRUBIN,DIRECT 0.4 mg/dL (0.0-0.3); BILIRUBIN,TOTAL 0.8 mg/dL (0.2-1.0); CREATININE 1.2 mg/dL (0.5-1.5); MAGNESIUM 2.4 mg/dL (1.80-2.40); PHOSPHORUS 2.5 mg/dL (2.5-4.9); POTASSIUM 3.1 mmol/L (3.5-5.1); TOTAL PROTEIN, SERUM 4.9 g/dL (6.0-8.3)
[2019-09-09] MEDS: AMIODARONE HCL 200 MG TABLET PO SCH ×2 (08:01→21:39)
[2019-09-09] MEDS: APIXABAN 5 MG TABLET PO SCH ×2 (08:01→21:39)
[2019-09-09] MEDS: POTASSIUM CHLORIDE 20 MEQ ERTAB PO PRN (09:50)
[2019-09-09] MEDS: PANTOPRAZOLE 40 MG/VIAL IVP SCH (09:50)
[2019-09-09] MEDS: TRAMADOL HCL 50 MG TABLET PO PRN ×2 (10:35→10:40)
--- NOTE | 2019-09-09 10:45 | NUR ---
AICD BIOTRONIC REP AT BEDSIDE TO INTERROGATE AICD. HE STATED THAT DR. AMBRIZ IS AWARE AND WILL BE BY LATER TO SEE AND ASSESS PATIENT.
[2019-09-09 12:00] LABS: CREATININE 1.1 mg/dL (0.5-1.5); POTASSIUM 4.6 mmol/L (3.5-5.1)
--- NOTE | 2019-09-09 13:00 | NUR ---
DR. AMBRIZ AT BEDSIDE, UPDATED ON PTS CONDITION.
[2019-09-09] MEDS: HYDROCODONE/ACETAMINOPHEN 5/325 MG TAB PO PRN ×2 (13:10→18:13)
--- NOTE | 2019-09-09 15:30 | NUR ---
DR. AMBRIZ AT BEDSIDE. RE-INTERPRETATION OF THE AICD WILL BE DONE TOMORROW 09/09.
[2019-09-10] MEDS: HYDROCORTISONE SOD SUCCINATE 100 MG/2 ML VIAL IV SCH ×4 (00:05→17:30)
--- NOTE | 2019-09-10 00:25 | NUR ---
Admitted to floor 410: Received pt per bed to bed transfer. Pt. fully awake, responsive and very cooperative.AOx4. Transferred to room with his belongings. Has 2 IV site: 20g at RH and 18 g at LFA. Has FC , fr. 16 attached to urobag draining a clear yellow colored urine. Pressure dressing to Right AKA clean , dry and intact. Continue on telemonitoring - pace rhythm. As per report, pt will undergo Pacemaker interrogation in the day shift as it was postponed yesterday. Plan of care continued. Kept monitored for any unusual changes in condition. Needs attended and cared for.
--- NOTE | 2019-09-10 00:41 | NUR ---
TRANSFER 0010 REPORT GIVEN TO ALY SANON RN PT TRANSFERRED VIA BED WITH O2 2L NC WITH SHREDDING SPECIALIST TO RM 410 PT BELONGINGS AT BEDSIDE. PT TOLERATED TRANSFER WELL.
[2019-09-10 00:52] VITALS: BP 120/71
[2019-09-10] MEDS: LINEZOLID 600 MG/ISO-OSM 300 ML IV SCH ×2 (00:59→14:52)
[2019-09-10] MEDS: ZOSYN 3.375GM+NS 50ML 50 ML IV SCH ×2 (00:59→14:52)
[2019-09-10] MEDS: HYDROCODONE/ACETAMINOPHEN 5/325 MG TAB PO PRN ×4 (01:00→19:43)
[2019-09-10 08:00] VITALS: BP 115/64
[2019-09-10] MEDS: AMIODARONE HCL 200 MG TABLET PO SCH ×2 (08:32→21:16)
[2019-09-10] MEDS: APIXABAN 5 MG TABLET PO SCH ×2 (08:32→21:16)
[2019-09-10 08:38] LABS: CREATININE 0.9 mg/dL (0.5-1.5); POTASSIUM 4.4 mmol/L (3.5-5.1)
[2019-09-10] MEDS: PANTOPRAZOLE 40 MG/VIAL IVP SCH (09:34)
[2019-09-10 12:00] VITALS: BP 115/63
--- NOTE | 2019-09-10 12:49 | NUR ---
CM Note: [facility]U pending approval CM fax[facility] order, clinicals, [facility], [facility]. Spoke to Addie acosta dcp [id number]. Pt pending approval and acceptance. MOT semi-filled will completed once pt has approval, EMS filled out pending to be faxed w/current date. Primary nurse aware. CM to cont to follow up.
--- NOTE | 2019-09-10 14:30 | NUR ---
DR FRAZIER IN TO SEE PT. REMOVED DRESSING TO RT AKA AND WANTS IT OPEN TO AIR. WOUND CLEAN CLOSED ,GOOD COLOR AND WARM TO TOUCH
[2019-09-10 16:00] VITALS: BP 118/62
[2019-09-10] MEDS ORDERED: SODIUM CHLORIDE 0.9% 1000ML 1,000 ML IV SCH ×2 (16:15→19:00)
[2019-09-10 20:45] VITALS: BP 122/58
[2019-09-11 00:24] VITALS: BP 102/54
[2019-09-11] MEDS: HYDROCORTISONE SOD SUCCINATE 100 MG/2 ML VIAL IV SCH ×5 (00:52→23:59)
[2019-09-11] MEDS: ZOSYN 3.375GM+NS 50ML 50 ML IV SCH ×2 (00:52→13:16)
[2019-09-11] MEDS: LINEZOLID 600 MG/ISO-OSM 300 ML IV SCH ×3 (00:52→23:59)
[2019-09-11 04:18] VITALS: BP 115/63
[2019-09-11] MEDS: HYDROCODONE/ACETAMINOPHEN 5/325 MG TAB PO PRN ×3 (06:11→18:23)
[2019-09-11 07:30] VITALS: BP 112/68
[2019-09-11] MEDS: PANTOPRAZOLE 40 MG/VIAL IVP SCH (08:59)
[2019-09-11] MEDS: AMIODARONE HCL 200 MG TABLET PO SCH ×2 (08:59→21:10)
[2019-09-11] MEDS: APIXABAN 5 MG TABLET PO SCH ×2 (08:59→21:10)
--- NOTE | 2019-09-11 10:53 | NUR ---
CM Note: Cancelled [facility], Pending approval for [facility] CM spoke to pt, verbalized he prefers to go to [facility]. ROWAN signed. Forwarded referral, confirmation received. Spoke to Brandon, will come eval pt. Pt pending approval. MOT semi-filled, pending to be completed once approved. EMS filled out, pending to be faxed once pt ready to DC. Primary nurse aware. Called [facility] spoke to Addie, made aware of change POC. Cancelled referral per pt request. CM to cont to follow up.
[2019-09-11 11:00] VITALS: BP 114/70
[2019-09-11 16:00] VITALS: BP 111/59
[2019-09-11 20:00] VITALS: BP 107/57
[2019-09-12] VITALS (7 sets, daily range): BP systolic 112–140; BP diastolic 62–78
[2019-09-12] MEDS: ZOSYN 3.375GM+NS 50ML 50 ML IV SCH ×2 (00:01→14:39)
[2019-09-12] MEDS: HYDROCODONE/ACETAMINOPHEN 5/325 MG TAB PO PRN ×4 (00:15→19:29)
[2019-09-12] MEDS: HYDROCORTISONE SOD SUCCINATE 100 MG/2 ML VIAL IV SCH ×3 (06:44→18:01)
[2019-09-12] MEDS: APIXABAN 5 MG TABLET PO SCH ×2 (09:00→21:13)
[2019-09-12] MEDS: PANTOPRAZOLE 40 MG/VIAL IVP SCH (09:01)
[2019-09-12] MEDS: AMIODARONE HCL 200 MG TABLET PO SCH ×2 (09:01→21:13)
[2019-09-12] MEDS: LINEZOLID 600 MG/ISO-OSM 300 ML IV SCH (12:17)
[2019-09-12] MEDS ORDERED: AMIODARONE HCL 200 MG TABLET PO SCH (14:30)
--- NOTE | 2019-09-12 16:00 | NUR ---
DRSG TO RIGHT AKA DONE ORDERED. LIGHT DARK BLOOD OOZING NOTED TO WELL APPROXIMATED INCISION WITH RADHA IN PLACE; GENERALIZED EDEMA NOTED TO RIGHT STUMP. ASSISTED BY NAUN PCP WITH STUMP ELEVATION. PT. TOLERATED WELL. PT.'S DAUGHTER AT BEDSIDE.
--- NOTE | 2019-09-12 17:00 | NUR ---
cm note spoke to sergey with [facility] and states pt approved for [facility], updated Ricardo sandra, nurse. per primary md needs cardio clearance. pending.
--- NOTE | 2019-09-12 17:08 | NUR ---
PAGED DR. Garo DAY, CUSHION FORMER PER ANSWERING SERVICE, TO OBTAIN CLEARANCE FOR DISCHARGE PER DR. MARIE. AWAITING RESPONSE.
[2019-09-13] MEDS: HYDROCORTISONE SOD SUCCINATE 100 MG/2 ML VIAL IV SCH ×4 (00:40→18:34)
[2019-09-13] MEDS: ZOSYN 3.375GM+NS 50ML 50 ML IV SCH ×2 (00:40→14:10)
[2019-09-13] MEDS: LINEZOLID 600 MG/ISO-OSM 300 ML IV SCH ×2 (00:40→14:15)
[2019-09-13] MEDS: HYDROCODONE/ACETAMINOPHEN 5/325 MG TAB PO PRN ×3 (01:20→14:10)
[2019-09-13 03:18] VITALS: BP 124/63
[2019-09-13 08:00] VITALS: BP 135/78
[2019-09-13] MEDS: APIXABAN 5 MG TABLET PO SCH (08:17)
[2019-09-13] MEDS: AMIODARONE HCL 200 MG TABLET PO SCH (08:17)
[2019-09-13] MEDS: PANTOPRAZOLE 40 MG/VIAL IVP SCH (08:17)
[2019-09-13 11:30] VITALS: BP 140/76
--- NOTE | 2019-09-13 12:24 | NUR ---
PT NOTED TO HAVE CONTINUED BLEEDING, MILD THROUGH RUTH WRAP. Pt SAT EOB ONLY. NURSE AWARE. BLEEDING PRESENT BEFORE THERAPY SESSION, NOT WORSE AFTER HOWEVER DOES NEED A DRESSING CHANGE Addendum: 09/13/19 at 1225 by BECCA MARTÍNEZ, PT PT Amended: Links added.
[2019-09-13] MEDS ORDERED: ZYVOX 600 MG TAB ONE (14:13)
[2019-09-13 16:00] VITALS: BP 123/73
--- NOTE | 2019-09-13 17:24 | NUR ---
[place] CHARGE NURSE TEXT DR MARIE REGARDING PT STATUS ON TRANSFER TO [facility], DR. MARIE REPLY TO D/C PT TODAY 09/13/2019. DR MARIE WAS TEXT BACK AGAIN TO GET THE [facility] RECONCILIATION NEEDED FOR THE PT TO BE ABLE TO BE D/C OR TRANSFERRED BUT HE HAS NOT REPLY BACK. Addendum: 09/13/19 at 1830 by GEORGIE DOTSON RN RN JUAN SHINE FROM [facility] WAS GIVEN REPORT, ALL QUESTIONS ANSWERED. EMS ALSO WAS NOTIFY ABOUT THE PT TO BE TRANSFERRED AND THEY WILL TRANSPORT THE PT BUT FOLLOW UP IS NEEDED FOR AUTHORIZATION OF INSURANCE THEY VERBALIZED.
--- NOTE | 2019-09-13 19:44 | NUR ---
EMS in room picking up patient for transfer to [facility]. patient AOX3 no issues noted. Leaving with IV and Beard, patient stable, good.
== END 2019-09-13 19:45 | DRG 239 ==
LOC: EDH 16:59 → EDHIP 20:45 → 2CV 09-06 01:11 → 2CH 09-06 22:19 → 3AH 09-09 20:15 → 2CH 09-09 21:33 → 4BH 09-10 00:04
PROVIDERS: ADMIT Family Medicine; ATTEND Family Medicine
PROC: 047M3ZZ Dilation of Right Popliteal Artery, Percutaneous Approach (ICD-10-PCS; principal; 2019-09-05)
PROC: 04LY3DZ Occlusion of Lower Artery with Intraluminal Device, Percutaneous Approach (ICD-10-PCS; 2019-09-05)
PROC: B41F1ZZ Fluoroscopy of Right Lower Extremity Arteries using Low Osmolar Contrast (ICD-10-PCS; 2019-09-05)
PROC: 3E04317 Introduction of Other Thrombolytic into Central Vein, Percutaneous Approach (ICD-10-PCS; 2019-09-05)
PROC: 5A09357 Assistance with Respiratory Ventilation, Less than 24 Consecutive Hours, Continuous Positive Airway Pressure (ICD-10-PCS; 2019-09-06)
PROC: 02HV33Z Insertion of Infusion Device into Superior Vena Cava, Percutaneous Approach (ICD-10-PCS; 2019-09-06)
PROC: B548ZZA Ultrasonography of Superior Vena Cava, Guidance (ICD-10-PCS; 2019-09-06)
PROC: 02PYX3Z Removal of Infusion Device from Great Vessel, External Approach (ICD-10-PCS; 2019-09-06)
PROC: 0Y6C0Z1 Detachment at Right Upper Leg, High, Open Approach (ICD-10-PCS; 2019-09-07)
PROC: 30233N1 Transfusion of Nonautologous Red Blood Cells into Peripheral Vein, Percutaneous Approach (ICD-10-PCS; 2019-09-07)
PROC: 5A09357 Assistance with Respiratory Ventilation, Less than 24 Consecutive Hours, Continuous Positive Airway Pressure (ICD-10-PCS; 2019-09-07)
PROC: 5A12012 Performance of Cardiac Output, Single, Manual (ICD-10-PCS; 2019-09-09)
DX: T82.399A Other mechanical complication of unspecified vascular grafts, initial encounter (principal); J96.01 Acute respiratory failure with hypoxia; N17.9 Acute kidney failure, unspecified; R57.9 Shock, unspecified; E87.2 Acidosis; M62.82 Rhabdomyolysis; I70.92 Chronic total occlusion of artery of the extremities; I47.2 Ventricular tachycardia; I48.21 Permanent atrial fibrillation; Z66 Do not resuscitate; I73.9 Peripheral vascular disease, unspecified; I25.5 Ischemic cardiomyopathy; I35.0 Nonrheumatic aortic (valve) stenosis; D64.9 Anemia, unspecified; D72.829 Elevated white blood cell count, unspecified; E78.5 Hyperlipidemia, unspecified; E87.6 Hypokalemia; I10 Essential (primary) hypertension; I25.10 Atherosclerotic heart disease of native coronary artery without angina pectoris; K21.9 Gastro-esophageal reflux disease without esophagitis; Y83.2 Surgical operation with anastomosis, bypass or graft as the cause of abnormal reaction of the patient, or of later complication, without mention of misadventure at the time of the procedure; Y92.89 Other specified places as the place of occurrence of the external cause; Z79.01 Long term (current) use of anticoagulants; Z79.52 Long term (current) use of systemic steroids; Z79.899 Other long term (current) drug therapy; Z87.891 Personal history of nicotine dependence; Z89.511 Acquired absence of right leg below knee; Z89.611 Acquired absence of right leg above knee; Z95.1 Presence of aortocoronary bypass graft; Z95.810 Presence of automatic (implantable) cardiac defibrillator; Z88.2 Allergy status to sulfonamides
CPT/HCPCS: 36415; 36430; 36556; 37211; 37214; 37224; 37242; 71045; 71275; 75635; 75710; 80048; 80053; 80076; 82435; 82550; 82803; 82947; 82948; 83605; 83735; 83880; 84100; 84132; 84295; 84484; 85018; 85025; 85027; 85347; 85384; 85610; 85730; 86850; 86900; 86901; 86922; 87324; 88307; 88311; 92950; 93005; 93925; 93970; 94660; 97039; A4344; A4606; C1751; C1757; C1760; C1769; C1887; C1894; C9113; G0378; J0610; J0690; J1100; J1250; J1644; J1720; J1815; J2001; J2020; J2250; J2370; J2405; J2543; J2704; J2710; J2997; J3010; J3480; J3490; J7030; J7040; J7050; J7070; P9016; P9045; Q9967